=== PATIENT | male | born 1965 | race Caucasian/White ===

== ENCOUNTER 2024-05-18 22:51 | Inpatient (IN) | payer OTHER, SELFPAY ==
[2024-05-18 22:54] VITALS: BMI 27.4
[2024-05-18 23:52] VITALS: BP 124/71; PULSE 86; RESP 16; TEMP 36.4; O2SAT 96
--- NOTE | 2024-05-19 02:24 | PC.ADMIT ---
Patient admitted to M5 at approximately 2230 via stretcher as 12b from [facility] where he presented with persistent upper abdominal pain without nausea/vomiting, increased urinary frequency, reported unprotected sexual activity and passive SI/HI. PMH includes Chronic L shoulder pain, Chronic R hip pain, DVT/PE. Patient has extensive history of ED presentations and inpatient admissions and 25-30 year history of incarceration. Alert and oriented x4. Skin warm, dry and intact. VSS. Appears stated age.Well groomed and in no acute distress. Speech is clear. Denies AH/VH and presents without evidence of delusions. Good eye contact. Ambulates independently. Patient is homeless and states he would like to go back to custodial. Reports that he is hopeless and wishes he was not alive but has no concrete plan. Patient also reports he wants to kill the drug dealers in [place]. When asked if he had a plan he said, I will shoot them all. Piter presented as calm, quiet and cooperative. Tox screen positive for amphetamines, cocaine and cannabis. Patient reports using these substances as well as heroin prior to admission to ED ([facility]) and stated he has not used alcohol for at least 30 days. Does not exhibit any signs of withdrawal. Patient asked TW what the length of stay would be here because I want to get my meds straightened out. 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 Patient was oriented to unit, given snack after which he went to his room. Observed to be sleeping at this time.
[2024-05-19 08:00] VITALS: BP 119/65; PULSE 77; TEMP 36.5; O2SAT 93
[2024-05-19] MEDS: OLANZapine 5 MG TABLET PO (08:53)
[2024-05-19] MEDS: hydrOXYzine HCL 25 MG TABLET PO (08:53)
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
[2024-05-19 11:50] VITALS: BP 119/65
[2024-05-19] MEDS: Baclofen 20 MG TABLET PO ×3 (11:50→20:31)
[2024-05-19] MEDS: Omeprazole 40 MG CAPSULE.DR PO (11:50)
[2024-05-19] MEDS: Folic Acid 1 MG TABLET PO (11:50)
[2024-05-19] MEDS: chlorproMAZINE HCl 25 MG TABLET 50 MG PO ×2 (11:50→20:31)
[2024-05-19] MEDS: cloNIDine HCL 0.2 MG TABLET PO ×2 (11:50→20:31)
[2024-05-19] MEDS: Aspirin 81 MG TAB.CHEW PO ×2 (11:50→20:31)
[2024-05-19] MEDS: valACYclovir HCL 500 MG TABLET PO ×2 (11:51→20:31)
[2024-05-19] MEDS: Tamsulosin HCL 0.4 MG CAPSULE PO (11:51)
[2024-05-19] MEDS: FLUoxetine HCl 20 MG CAPSULE 40 MG PO (11:51)
[2024-05-19] MEDS: Thiamine HCL 100 MG TABLET PO (11:51)
[2024-05-19] MEDS: Sucralfate 1 GM TABLET PO ×2 (11:52→17:38)
[2024-05-19] MEDS: Gabapentin 400 MG CAPSULE 800 MG PO ×3 (12:42→20:31)
--- NOTE | 2024-05-19 17:33 | P.CONHOSP_ITS ---
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 Medical consult for admission H&P. Patient denies any acute medical complaints at this time. Reports previous abdominal pain has resolved with omeprazole. Does note that he has a right upper rear molar that has a lar ge cavity and tooth needs to be removed, however, denies any acute dental pain either at rest or with chewing. No fever, chills. Denies any abscess like lesions in the mouth. No chest pain/pressure, palpitations. Denies shortness or breath or difficulty breathing. Overall patient states he feels ?good?. Review of Systems Review of Systems: Resolution of abd pain Right upper rear molar cavity Denies jaw or tooth pain Patient denies any acute medical concern at this time. [facility] Medical History Antisocial personality disorder Bipolar disorder PTSD (post-traumatic stress disorder) Social History Household Members: Other Housing: Homeless Do you presently have visiting nurse or other home services: No Patient Tobacco Use Status: Former Tobacco user Tobacco use type: Cigarette Smoked in Last 30 Days: Yes e-Cigarette/Vaping Use: Never Used Patient Interested in Nicotine Replacement: Yes Patient Given Instructions on How to Stop Smoking: Yes Date Education Initiated: 05/18/24 Second Hand Smoke Exposure: No Use of substances other than those prescribed or required for medical reasons: Yes Substance Use Type: Crack/Cocaine, Heroin and Marijuana Last Used Substance: Days (ago) Currently Displaying Signs/Symptoms of Drug Intoxication Withdrawal: No Any prior treatment program specific to substance use: Yes Have you been hit, kicked, punched, or otherwise hurt by someone within the past year? If so, by whom?: No Do you feel safe in your current relationship?: No Current Relationship Is there a partner from a previous relationship who is making you feel unsafe now?: No Advance Directives: No Advance Directives Information Provided: No Do you have thoughts of harming others: None Do you have a plan to hurt others: No Plan Recently lost weight without trying: No Eating poorly because of decreased appetite: No Nutrition Risks: No Nutritional Risk Poor oral hygiene: Yes Meds Allergies Allergy/AdvReac Type Severity Reaction Status Date / Time No Known Allergies Allergy Verified 05/18/24 22:54 Active Medications: Current Medications Acetaminophen (Acetaminophen 325 Mg Tablet) 650 mg PO Q6H PRN PRN Reason: Headache/Pain Mild Scale (1-3) Al Hydroxide/Mg Hydroxide (Magnesium Hydrox/Alum Hydrox 30 Ml Oral.Susp) 30 ml PO Q6H PRN PRN Reason: Heartburn/Nausea Aspirin (Aspirin 81 Mg Tab.Chew) 81 mg PO BID [facility] Last Admin: 05/19/24 11:50 Dose: 81 mg Baclofen (Baclofen 20 Mg Tablet) 20 mg PO TID [facility] Last Admin: 05/19/24 11:50 Dose: 20 mg Chlorpromazine HCl (Chlorpromazine Hcl 25 Mg Tablet) 50 mg PO BID [facility] Last Admin: 05/19/24 11:50 Dose: 50 mg Clonidine HCl (Clonidine Hcl 0.2 Mg Tablet) 0.2 mg PO BID [facility]; Protocol Last Admin: 05/19/24 11:50 Dose: 0.2 mg Fluoxetine HCl (Fluoxetine Hcl 20 Mg Capsule) 40 mg PO DAILY [facility] Last Admin: 05/19/24 11:51 Dose: 40 mg Folic Acid (Folic Acid 1 Mg Tablet) 1 mg PO DAILY [facility] Last Admin: 05/19/24 11:50 Dose: 1 mg Gabapentin (Gabapentin 400 Mg Capsule) 800 mg PO TID [facility] Last Admin: 05/19/24 12:42 Dose: 800 mg Hydroxyzine HCl (Hydroxyzine Hcl 50 Mg Tablet) 50 mg PO Q6H PRN PRN Reason: Anxiety Ibuprofen (Ibuprofen 800 Mg Tablet) 800 mg PO Q8H PRN PRN Reason: Pain, Severe (Pain Scale 7-10) Magnesium Hydroxide (Milk Of Magnesia 30 Ml Oral.Susp) 30 ml PO DAILY PRN PRN Reason: Constipation Mirtazapine (Mirtazapine 15 Mg Tablet) 15 mg PO BEDTIME [facility] Nicotine Polacrilex (Nicotine Polacrilex 2 Mg Gum) 2 mg BUCCAL Q2H PRN PRN Reason: Nicotine Cravings Olanzapine (Olanzapine 5 Mg Tablet) 5 mg PO Q4H PRN PRN Reason: agitation Last Admin: 05/19/24 08:53 Dose: 5 mg Omeprazole (Omeprazole 40 Mg Capsule.Dr) 40 mg PO DAILY@0630 [facility] Last Admin: 05/19/24 11:50 Dose: 40 mg Sucralfate (Sucralfate 1 Gm Tablet) 1 gm PO BIDAC [facility] Tamsulosin HCl (Tamsulosin Hcl 0.4 Mg Capsule) 0.4 mg PO DAILY [facility] Last Admin: 05/19/24 11:51 Dose: 0.4 mg Thiamine HCl (Thiamine Hcl 100 Mg Tablet) 100 mg PO DAILY [facility] Last Admin: 05/19/24 11:51 Dose: 100 mg Trazodone HCl (Trazodone Hcl 100 Mg Tablet) 100 mg PO BEDTIME [facility] Valacyclovir HCl (Valacyclovir Hcl 500 Mg Tablet) 500 mg PO BID [facility] Last Admin: 05/19/24 11:51 Dose: 500 mg Home Medications ?Medication ?Instructions ?Recorded ?Confirmed ?Last Taken ?Type aspirin 81 mg tablet 81 mg PO BID 05/19/24 05/19/24 05/18/24 08:30 History baclofen 20 mg tablet 20 mg PO TID 05/19/24 05/19/24 05/18/24 15:00 History chlorpromazine 50 mg tablet 50 mg PO BID 05/19/24 05/19/24 05/18/24 08:33 History clonidine HCl 0.1 mg tablet 0.2 mg PO BID 05/19/24 05/19/24 05/18/24 08:32 History fluoxetine 40 mg capsule 40 mg PO DAILY 05/19/24 05/19/24 05/18/24 08:33 History folic acid 1 mg tablet 1 mg PO DAILY 05/19/24 05/19/24 05/18/24 08:30 History gabapentin 800 mg tablet 800 mg PO TID 05/19/24 05/19/24 05/18/24 15:00 History hydroxyzine pamoate 50 mg capsule 50 mg PO Q6H PRN Anxiety 05/19/24 05/19/24 05/17/24 19:38 History ibuprofen 800 mg tablet 800 mg PO Q8H PRN Pain (Scale 05/19/24 05/19/24 05/16/24 13:00 History Score 7-10) mirtazapine 15 mg tablet 15 mg PO BEDTIME 05/19/24 05/19/24 05/17/24 20:21 History omeprazole 40 mg capsule,delayed 40 mg PO DAILY 05/19/24 05/19/24 05/18/24 06:30 History release sucralfate 1 gram tablet 1 g PO BID 05/19/24 05/19/24 05/18/24 16:30 History tamsulosin 0.4 mg capsule 0.4 mg PO DAILY 05/19/24 05/19/24 05/18/24 08:30 History thiamine HCl (vitamin B1) 100 mg 100 mg PO DAILY 05/19/24 05/19/24 05/18/24 08:30 History tablet trazodone 100 mg tablet 100 mg PO BEDTIME 05/19/24 05/19/24 05/17/24 20:20 History valacyclovir 500 mg tablet 500 mg PO BID 05/19/24 05/19/24 05/18/24 08:30 History Physical Exam Vital Signs and Narrative: Vital Signs: Last Vital Signs Temp 97.7 F 05/19/24 08:00 Pulse 77 05/19/24 08:00 Resp 16 05/18/24 23:52 BP 119/65 05/19/24 11:50 Pulse Ox 93 05/19/24 08:00 O2 Del Method Room Air 05/19/24 08:00 BMI result Body Mass Index 27.4 General: AOx3, no acute distress HEENT: Blind in left eye Resp: CTA bilaterally CVS: S1, S2, RRR GI: +BS, NT, no distention Skin: Warm, dry Neuro: Cranial nerves II-XII grossly intact bilaterally. 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 Medical consult for admission H&P. Patient denies any acute medical complaints at this time. Mood disorder Plan as per psychiatry Polysubstance use disorder Plan as per psychiatry Pt otherwise denies any significant chronic medical conditions or acute medical complaints at this time. Will sign off. Thank you for allowing us to participate in the care of this patient. Please re-consult if any acute issue need arises.
[2024-05-19 20:00] VITALS: BP 121/73; PULSE 85; TEMP 36.5; O2SAT 96
[2024-05-19] MEDS: Mirtazapine 15 MG TABLET PO (20:31)
[2024-05-19] MEDS: traZODone HCL 100 MG TABLET PO (20:31)
[2024-05-20] MEDS: Omeprazole 40 MG CAPSULE.DR PO (06:36)
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
[2024-05-20 08:12] VITALS: BP 130/78; PULSE 75; RESP 18; TEMP 36.6; O2SAT 93
[2024-05-20] MEDS: Sucralfate 1 GM TABLET PO ×2 (08:31→16:23)
[2024-05-20] MEDS: Baclofen 20 MG TABLET PO ×3 (08:51→20:40)
[2024-05-20] MEDS: Tamsulosin HCL 0.4 MG CAPSULE PO (08:52)
[2024-05-20] MEDS: Thiamine HCL 100 MG TABLET PO (08:52)
[2024-05-20] MEDS: FLUoxetine HCl 20 MG CAPSULE 40 MG PO (08:52)
[2024-05-20] MEDS: Folic Acid 1 MG TABLET PO (08:52)
[2024-05-20] MEDS: cloNIDine HCL 0.2 MG TABLET PO ×2 (08:52→20:39)
[2024-05-20] MEDS: valACYclovir HCL 500 MG TABLET PO ×2 (08:52→20:40)
[2024-05-20] MEDS: Gabapentin 400 MG CAPSULE 800 MG PO ×3 (08:52→20:40)
[2024-05-20] MEDS: chlorproMAZINE HCl 25 MG TABLET 50 MG PO ×3 (08:52→20:40)
[2024-05-20] MEDS: Aspirin 81 MG TAB.CHEW PO ×2 (08:52→20:39)
[2024-05-20] MEDS: OLANZapine 5 MG TABLET PO (11:20)
[2024-05-20] MEDS: hydrOXYzine HCL 50 MG TABLET PO (11:20)
[2024-05-20] MEDS: HaloperidoL 5 MG TABLET PO (15:20)
[2024-05-20 20:00] VITALS: BP 124/64; PULSE 88; TEMP 36.6; O2SAT 94
[2024-05-20 20:39] VITALS: BP 124/64
[2024-05-20] MEDS: Mirtazapine 15 MG TABLET PO (20:39)
[2024-05-20] MEDS: traZODone HCL 100 MG TABLET PO (20:40)
[2024-05-21] MEDS: Omeprazole 40 MG CAPSULE.DR PO (06:30)
[2024-05-21 08:05] VITALS: BP 127/68; PULSE 83; RESP 18; TEMP 36.6; O2SAT 95
--- NOTE | 2024-05-21 08:09 | HO.PSYCHPN ---
Subjective Subjective Date of Service: 05/21/24 Reason For Visit: F60.2, F14.20, F12.9 Medical Problems Affecting Mental Status: No Interim History: Overall reports things are going well with Haldol and Thorazine, which he took yesterday 1 time with good effect. Feeling supported on the unit. Still has suicidal thoughts in the context of homelessness. Isolative. Sleep okay. Appetite good. Medication Compliance: Yes Side effects from medications: No Attending Groups: No Review of Systems Acute medical concerns: No Review of Systems Review of Systems Yes all other systems are reviewed and are negative Mental Status Exam Mental Status Exam Narrative: hospital clothing. In room. Fair self-care. Engaged in interview in treatment room. Pleasant. Reports feeling depressed. Mood is dysthymic. Endorses SI in the context of stressors. No plans. Feeling supported in the hospital. No HI. No hallucinations. Insight and judgment fair Diagnostics Vital Signs (24Hr): Vital Signs - 24 hr 05/20/24 08:12 05/20/24 20:00 05/20/24 20:39 Temperature 98 F 97.9 F Pulse Rate 75 88 Respiratory Rate 18 Blood Pressure 130/78 124/64 124/64 Pulse Oximetry 93 94 Oxygen Delivery Method Room Air Room Air 05/21/24 08:05 Temperature 97.9 F Pulse Rate 83 Respiratory Rate 18 Blood Pressure 127/68 Pulse Oximetry 95 Oxygen Delivery Method Room Air BMI result Body Mass Index 27.4 Medications Medications Current Medications Acetaminophen (Acetaminophen 325 Mg Tablet) 650 mg PO Q6H PRN PRN Reason: Headache/Pain Mild Scale (1-3) Al Hydroxide/Mg Hydroxide (Magnesium Hydrox/Alum Hydrox 30 Ml Oral.Susp) 30 ml PO Q6H PRN PRN Reason: Heartburn/Nausea Aspirin (Aspirin 81 Mg Tab.Chew) 81 mg PO BID [facility] Last Admin: 05/20/24 20:39 Dose: 81 mg Baclofen (Baclofen 20 Mg Tablet) 20 mg PO TID [facility] Last Admin: 05/20/24 20:40 Dose: 20 mg Chlorpromazine HCl (Chlorpromazine Hcl 25 Mg Tablet) 50 mg PO BID [facility] Last Admin: 05/20/24 20:40 Dose: 50 mg Chlorpromazine HCl (Chlorpromazine Hcl 25 Mg Tablet) 50 mg PO TID PRN PRN Reason: agitation Last Admin: 05/20/24 15:21 Dose: 50 mg Clonidine HCl (Clonidine Hcl 0.2 Mg Tablet) 0.2 mg PO BID [facility]; Protocol Last Admin: 05/20/24 20:39 Dose: 0.2 mg Fluoxetine HCl (Fluoxetine Hcl 20 Mg Capsule) 40 mg PO DAILY [facility] Last Admin: 05/20/24 08:52 Dose: 40 mg Folic Acid (Folic Acid 1 Mg Tablet) 1 mg PO DAILY [facility] Last Admin: 05/20/24 08:52 Dose: 1 mg Gabapentin (Gabapentin 400 Mg Capsule) 800 mg PO TID [facility] Last Admin: 05/20/24 20:40 Dose: 800 mg Haloperidol (Haloperidol 5 Mg Tablet) 5 mg PO TID PRN PRN Reason: Anxiety Last Admin: 05/20/24 15:20 Dose: 5 mg Ibuprofen (Ibuprofen 800 Mg Tablet) 800 mg PO Q8H PRN PRN Reason: Pain, Severe (Pain Scale 7-10) Magnesium Hydroxide (Milk Of Magnesia 30 Ml Oral.Susp) 30 ml PO DAILY PRN PRN Reason: Constipation Mirtazapine (Mirtazapine 15 Mg Tablet) 15 mg PO BEDTIME [facility] Last Admin: 05/20/24 20:39 Dose: 15 mg Nicotine Polacrilex (Nicotine Polacrilex 2 Mg Gum) 2 mg BUCCAL Q2H PRN PRN Reason: Nicotine Cravings Omeprazole (Omeprazole 40 Mg Capsule.Dr) 40 mg PO DAILY@0630 [facility] Last Admin: 05/21/24 06:30 Dose: 40 mg Sucralfate (Sucralfate 1 Gm Tablet) 1 gm PO BIDAC [facility] Last Admin: 05/20/24 16:23 Dose: 1 gm Tamsulosin HCl (Tamsulosin Hcl 0.4 Mg Capsule) 0.4 mg PO DAILY [facility] Last Admin: 05/20/24 08:52 Dose: 0.4 mg Thiamine HCl (Thiamine Hcl 100 Mg Tablet) 100 mg PO DAILY [facility] Last Admin: 05/20/24 08:52 Dose: 100 mg Trazodone HCl (Trazodone Hcl 100 Mg Tablet) 100 mg PO BEDTIME [facility] Last Admin: 05/20/24 20:40 Dose: 100 mg Valacyclovir HCl (Valacyclovir Hcl 500 Mg Tablet) 500 mg PO BID [facility] Last Admin: 05/20/24 20:40 Dose: 500 mg Allergies Allergies Allergy/AdvReac Type Severity Reaction Status Date / Time No Known Allergies Allergy Verified 05/18/24 22:54 Assessment & Plan Assessment & Plan (1) Bipolar disorder: Status: Acute Code(s): F31.9 - Bipolar disorder, unspecified (2) PTSD (post-traumatic stress disorder): Status: Acute Code(s): F43.10 - Post-traumatic stress disorder, unspecified (3) Antisocial personality disorder: Status: Acute Code(s): F60.2 - Antisocial personality disorder Plan PTSD, Bipolar Disorder, Antisocial Personality Disorder. Plan: Admit, CV 15 minute checks Continue current regime-Observe for the need to make changes in regime Collateral contacts Diagnostics as needed Encourage full milieu Discharge planning. 05/20: change prns to haldol and thorazine as per patient request 05/21/2024: No changes Reason for continued inpatient stay Substantial Risk for: harm to self and harm to others Time Spent With Patient Time: Total time managing care of this patient today ____ minutes.
[2024-05-21] MEDS: Sucralfate 1 GM TABLET PO ×2 (08:21→16:39)
[2024-05-21 08:58] VITALS: BP 127/68
[2024-05-21] MEDS: cloNIDine HCL 0.2 MG TABLET PO ×2 (08:58→20:05)
[2024-05-21] MEDS: Aspirin 81 MG TAB.CHEW PO ×2 (09:04→20:04)
[2024-05-21] MEDS: Baclofen 20 MG TABLET PO ×3 (09:04→20:05)
[2024-05-21] MEDS: FLUoxetine HCl 20 MG CAPSULE 40 MG PO (09:04)
[2024-05-21] MEDS: chlorproMAZINE HCl 25 MG TABLET 50 MG PO ×3 (09:04→20:04)
[2024-05-21] MEDS: Thiamine HCL 100 MG TABLET PO (09:04)
[2024-05-21] MEDS: valACYclovir HCL 500 MG TABLET PO ×2 (09:05→20:05)
[2024-05-21] MEDS: Gabapentin 400 MG CAPSULE 800 MG PO ×3 (09:06→20:04)
[2024-05-21] MEDS: Folic Acid 1 MG TABLET PO (09:06)
[2024-05-21] MEDS: Tamsulosin HCL 0.4 MG CAPSULE PO (09:06)
[2024-05-21] MEDS: HaloperidoL 5 MG TABLET PO (09:52)
[2024-05-21 20:00] VITALS: BP 125/62; PULSE 85; RESP 15; TEMP 36.5; O2SAT 85
[2024-05-21] MEDS: Mirtazapine 15 MG TABLET PO (20:04)
[2024-05-21] MEDS: traZODone HCL 100 MG TABLET PO (20:04)
[2024-05-22] MEDS: Omeprazole 40 MG CAPSULE.DR PO (06:58)
[2024-05-22 08:00] VITALS: BP 116/76; TEMP 36.6; O2SAT 97
[2024-05-22] MEDS: Aspirin 81 MG TAB.CHEW PO ×2 (08:52→20:19)
[2024-05-22] MEDS: Baclofen 20 MG TABLET PO ×3 (08:52→20:19)
[2024-05-22] MEDS: valACYclovir HCL 500 MG TABLET PO ×2 (08:52→20:18)
[2024-05-22] MEDS: chlorproMAZINE HCl 25 MG TABLET 50 MG PO ×2 (08:52→20:18)
[2024-05-22] MEDS: FLUoxetine HCl 20 MG CAPSULE 40 MG PO (08:52)
[2024-05-22] MEDS: Gabapentin 400 MG CAPSULE 800 MG PO ×3 (08:52→20:18)
[2024-05-22] MEDS: Thiamine HCL 100 MG TABLET PO (08:53)
[2024-05-22] MEDS: HaloperidoL 5 MG TABLET PO ×2 (08:53→13:12)
[2024-05-22] MEDS: Sucralfate 1 GM TABLET PO ×2 (08:53→16:59)
[2024-05-22] MEDS: Folic Acid 1 MG TABLET PO (08:53)
[2024-05-22] MEDS: cloNIDine HCL 0.2 MG TABLET PO ×2 (10:34→20:19)
--- NOTE | 2024-05-22 17:32 | P.PNPSI_ITS ---
Subjective Subjective Date of Service: 05/22/24 Reason For Visit: F60.2, F14.20, F12.9 Subjective Notes: Section 12B Healthcare Proxy: No Guardianship: No Medical Problems Affecting Mental Status: No Interim History: Team report a reasonable weekend with one conflict with a peer over the television. Pt reports he would like to be considered for a residential program. Reports regime to be tolerated and helpful. Declines changes. Asking for an extended length of stay in hospital today. Medication Compliance: Yes Side effects from medications: No Attending Groups: Intermittent Review of Systems Acute medical concerns: No Medical Review of Systems: unchanged Review of Systems Review of Systems Yes all other systems are reviewed and are negative Mental Status Exam Mental Status Exam Patient Appearance: Appropriate Patient Orientation: Person, Place, Time and Situation Level of Consciousness: Alert Patient Behavior: Talkative, Cooperative and Good Eye Contact Mood Description: Depressed Affect Description: Flat Patient Cognition Impaired: No Ability to Follow Directions: Good Speech Pattern: Spontaneous Speech Memory Description: Intact Hallucinations: None Delusions: Not Present Perceptual Disturbances: Depersonalization and Derealization Thought Process: Goal Oriented Thought Content: positive for Goal Oriented Depressive Symptoms: Thoughts of /Suicide Judgement: Fair Diagnostics Vital Signs (24Hr): Vital Signs - 24 hr 05/21/24 20:00 05/22/24 08:00 Temperature 97.7 F 97.8 F Pulse Rate 85 Respiratory Rate 15 Blood Pressure 125/62 116/76 Pulse Oximetry 85 L 97 Oxygen Delivery Method Room Air BMI result Body Mass Index 27.4 Medications Medications Current Medications Acetaminophen (Acetaminophen 325 Mg Tablet) 650 mg PO Q6H PRN PRN Reason: Headache/Pain Mild Scale (1-3) Al Hydroxide/Mg Hydroxide (Magnesium Hydrox/Alum Hydrox 30 Ml Oral.Susp) 30 ml PO Q6H PRN PRN Reason: Heartburn/Nausea Aspirin (Aspirin 81 Mg Tab.Chew) 81 mg PO BID [facility] Last Admin: 05/22/24 08:52 Dose: 81 mg Baclofen (Baclofen 20 Mg Tablet) 20 mg PO TID [facility] Last Admin: 05/22/24 16:59 Dose: 20 mg Chlorpromazine HCl (Chlorpromazine Hcl 25 Mg Tablet) 50 mg PO BID [facility] Last Admin: 05/22/24 08:52 Dose: 50 mg Chlorpromazine HCl (Chlorpromazine Hcl 25 Mg Tablet) 50 mg PO TID PRN PRN Reason: agitation Last Admin: 05/21/24 10:53 Dose: 50 mg Clonidine HCl (Clonidine Hcl 0.2 Mg Tablet) 0.2 mg PO BID [facility]; Protocol Last Admin: 05/22/24 10:34 Dose: 0.2 mg Fluoxetine HCl (Fluoxetine Hcl 20 Mg Capsule) 40 mg PO DAILY [facility] Last Admin: 05/22/24 08:52 Dose: 40 mg Folic Acid (Folic Acid 1 Mg Tablet) 1 mg PO DAILY [facility] Last Admin: 05/22/24 08:53 Dose: 1 mg Gabapentin (Gabapentin 400 Mg Capsule) 800 mg PO TID [facility] Last Admin: 05/22/24 16:59 Dose: 800 mg Haloperidol (Haloperidol 5 Mg Tablet) 5 mg PO TID PRN PRN Reason: Anxiety Last Admin: 05/22/24 13:12 Dose: 5 mg Ibuprofen (Ibuprofen 800 Mg Tablet) 800 mg PO Q8H PRN PRN Reason: Pain, Severe (Pain Scale 7-10) Magnesium Hydroxide (Milk Of Magnesia 30 Ml Oral.Susp) 30 ml PO DAILY PRN PRN Reason: Constipation Mirtazapine (Mirtazapine 15 Mg Tablet) 15 mg PO BEDTIME [facility] Last Admin: 05/21/24 20:04 Dose: 15 mg Nicotine Polacrilex (Nicotine Polacrilex 2 Mg Gum) 2 mg BUCCAL Q2H PRN PRN Reason: Nicotine Cravings Omeprazole (Omeprazole 40 Mg Capsule.Dr) 40 mg PO DAILY@0630 [facility] Last Admin: 05/22/24 06:58 Dose: 40 mg Sucralfate (Sucralfate 1 Gm Tablet) 1 gm PO BIDAC [facility] Last Admin: 05/22/24 16:59 Dose: 1 gm Tamsulosin HCl (Tamsulosin Hcl 0.4 Mg Capsule) 0.8 mg PO BEDTIME [facility] Thiamine HCl (Thiamine Hcl 100 Mg Tablet) 100 mg PO DAILY [facility] Last Admin: 05/22/24 08:53 Dose: 100 mg Trazodone HCl (Trazodone Hcl 100 Mg Tablet) 100 mg PO BEDTIME [facility] Last Admin: 05/21/24 20:04 Dose: 100 mg Valacyclovir HCl (Valacyclovir Hcl 500 Mg Tablet) 500 mg PO BID [facility] Last Admin: 05/22/24 08:52 Dose: 500 mg Allergies Allergies Allergy/AdvReac Type Severity Reaction Status Date / Time No Known Allergies Allergy Verified 05/18/24 22:54 Assessment & Plan Assessment & Plan (1) Bipolar disorder: Status: Acute Code(s): F31.9 - Bipolar disorder, unspecified (2) PTSD (post-traumatic stress disorder): Status: Acute Code(s): F43.10 - Post-traumatic stress disorder, unspecified (3) Antisocial personality disorder: Status: Acute Code(s): F60.2 - Antisocial personality disorder Plan PTSD, Bipolar Disorder, Antisocial Personality Disorder. Plan: Admit, CV 15 minute checks Continue current regime-Observe for the need to make changes in regime Collateral contacts Diagnostics as needed Encourage full milieu Discharge planning. 05/20: change prns to haldol and thorazine as per patient request 05/21/2024: No changes 05/22: team is assessing residential options for pt in discharge planning continue current regime. Pt reporting no current adverse effects. Reason for continued inpatient stay Substantial Risk for: rapid decompensation Time Spent With Patient Time: Total time managing care of this patient today ____ minutes.
[2024-05-22 20:00] VITALS: BP 124/65; PULSE 96; TEMP 36.7; O2SAT 98
[2024-05-22 20:19] VITALS: BP 124/65
[2024-05-22] MEDS: Tamsulosin HCL 0.4 MG CAPSULE 0.8 MG PO (20:19)
[2024-05-22] MEDS: Mirtazapine 15 MG TABLET PO (20:19)
[2024-05-22] MEDS: traZODone HCL 100 MG TABLET PO (20:19)
[2024-05-23] MEDS: Omeprazole 40 MG CAPSULE.DR PO (06:43)
[2024-05-23 08:00] VITALS: BP 110/71; PULSE 94; TEMP 36.6; O2SAT 95
[2024-05-23] MEDS: Aspirin 81 MG TAB.CHEW PO ×2 (08:46→20:21)
[2024-05-23] MEDS: Baclofen 20 MG TABLET PO ×3 (08:46→20:21)
[2024-05-23] MEDS: Gabapentin 400 MG CAPSULE 800 MG PO ×3 (08:46→20:21)
[2024-05-23 08:47] VITALS: BP 110/71
[2024-05-23] MEDS: FLUoxetine HCl 20 MG CAPSULE 40 MG PO (08:47)
[2024-05-23] MEDS: Folic Acid 1 MG TABLET PO (08:47)
[2024-05-23] MEDS: cloNIDine HCL 0.2 MG TABLET PO ×2 (08:47→20:21)
[2024-05-23] MEDS: valACYclovir HCL 500 MG TABLET PO ×2 (08:47→20:21)
[2024-05-23] MEDS: chlorproMAZINE HCl 25 MG TABLET 50 MG PO ×2 (08:47→20:21)
[2024-05-23] MEDS: Sucralfate 1 GM TABLET PO ×2 (08:48→17:58)
[2024-05-23] MEDS: Thiamine HCL 100 MG TABLET PO (08:48)
--- NOTE | 2024-05-23 17:45 | HO.PSYCHPN ---
Subjective Subjective Date of Service: 05/23/24 Reason For Visit: F60.2, F14.20, F12.9 Subjective Notes: Conditional Voluntary Healthcare Proxy: No Guardianship: No Medical Problems Affecting Mental Status: No Interim History: Section 12 B . Pt signed a conditional voluntary this a.m. Reports regime is tolerated and without SE. Reports efficacy. Team looking at respite bed options in [facility] with pt for discharge planning. Medication Compliance: Yes Side effects from medications: No Attending Groups: Intermittent Review of Systems Acute medical concerns: No Medical Review of Systems: unchanged Review of Systems Review of Systems Yes all other systems are reviewed and are negative Mental Status Exam Mental Status Exam Patient Appearance: Appropriate Patient Orientation: Person, Place, Time and Situation Level of Consciousness: Alert Patient Behavior: Talkative, Cooperative and Good Eye Contact Mood Description: Depressed Affect Description: Flat Patient Cognition Impaired: No Ability to Follow Directions: Good Speech Pattern: Spontaneous Speech Memory Description: Intact Hallucinations: None Delusions: Not Present Perceptual Disturbances: Depersonalization and Derealization Thought Process: Goal Oriented Thought Content: positive for Goal Oriented Depressive Symptoms: Thoughts of /Suicide Judgement: Fair Diagnostics Vital Signs (24Hr): Vital Signs - 24 hr 05/22/24 20:00 05/22/24 20:19 05/23/24 08:00 Temperature 98.0 F 97.9 F Pulse Rate 96 94 Blood Pressure 124/65 124/65 110/71 Pulse Oximetry 98 95 Oxygen Delivery Method Room Air Room Air 05/23/24 08:47 Temperature Pulse Rate Blood Pressure 110/71 Pulse Oximetry Oxygen Delivery Method BMI result Body Mass Index 27.4 Medications Medications Current Medications Acetaminophen (Acetaminophen 325 Mg Tablet) 650 mg PO Q6H PRN PRN Reason: Headache/Pain Mild Scale (1-3) Al Hydroxide/Mg Hydroxide (Magnesium Hydrox/Alum Hydrox 30 Ml Oral.Susp) 30 ml PO Q6H PRN PRN Reason: Heartburn/Nausea Aspirin (Aspirin 81 Mg Tab.Chew) 81 mg PO BID [facility] Last Admin: 05/23/24 08:46 Dose: 81 mg Baclofen (Baclofen 20 Mg Tablet) 20 mg PO TID [facility] Last Admin: 05/23/24 14:42 Dose: 20 mg Chlorpromazine HCl (Chlorpromazine Hcl 25 Mg Tablet) 50 mg PO BID [facility] Last Admin: 05/23/24 08:47 Dose: 50 mg Chlorpromazine HCl (Chlorpromazine Hcl 25 Mg Tablet) 50 mg PO TID PRN PRN Reason: agitation Last Admin: 05/21/24 10:53 Dose: 50 mg Clonidine HCl (Clonidine Hcl 0.2 Mg Tablet) 0.2 mg PO BID [facility]; Protocol Last Admin: 05/23/24 08:47 Dose: 0.2 mg Fluoxetine HCl (Fluoxetine Hcl 20 Mg Capsule) 40 mg PO DAILY [facility] Last Admin: 05/23/24 08:47 Dose: 40 mg Folic Acid (Folic Acid 1 Mg Tablet) 1 mg PO DAILY [facility] Last Admin: 05/23/24 08:47 Dose: 1 mg Gabapentin (Gabapentin 400 Mg Capsule) 800 mg PO TID [facility] Last Admin: 05/23/24 14:43 Dose: 800 mg Haloperidol (Haloperidol 5 Mg Tablet) 5 mg PO TID PRN PRN Reason: Anxiety Last Admin: 05/22/24 13:12 Dose: 5 mg Ibuprofen (Ibuprofen 800 Mg Tablet) 800 mg PO Q8H PRN PRN Reason: Pain, Severe (Pain Scale 7-10) Magnesium Hydroxide (Milk Of Magnesia 30 Ml Oral.Susp) 30 ml PO DAILY PRN PRN Reason: Constipation Mirtazapine (Mirtazapine 15 Mg Tablet) 15 mg PO BEDTIME [facility] Last Admin: 05/22/24 20:19 Dose: 15 mg Nicotine Polacrilex (Nicotine Polacrilex 2 Mg Gum) 2 mg BUCCAL Q2H PRN PRN Reason: Nicotine Cravings Omeprazole (Omeprazole 40 Mg Capsule.Dr) 40 mg PO DAILY@0630 [facility] Last Admin: 05/23/24 06:43 Dose: 40 mg Sucralfate (Sucralfate 1 Gm Tablet) 1 gm PO BIDAC [facility] Last Admin: 05/23/24 08:48 Dose: 1 gm Tamsulosin HCl (Tamsulosin Hcl 0.4 Mg Capsule) 0.8 mg PO BEDTIME [facility] Last Admin: 05/22/24 20:19 Dose: 0.8 mg Thiamine HCl (Thiamine Hcl 100 Mg Tablet) 100 mg PO DAILY [facility] Last Admin: 05/23/24 08:48 Dose: 100 mg Trazodone HCl (Trazodone Hcl 100 Mg Tablet) 100 mg PO BEDTIME [facility] Last Admin: 05/22/24 20:19 Dose: 100 mg Valacyclovir HCl (Valacyclovir Hcl 500 Mg Tablet) 500 mg PO BID [facility] Last Admin: 05/23/24 08:47 Dose: 500 mg Allergies Allergies Allergy/AdvReac Type Severity Reaction Status Date / Time No Known Allergies Allergy Verified 05/18/24 22:54 Assessment & Plan Assessment & Plan (1) Bipolar disorder: Status: Acute Code(s): F31.9 - Bipolar disorder, unspecified (2) PTSD (post-traumatic stress disorder): Status: Acute Code(s): F43.10 - Post-traumatic stress disorder, unspecified (3) Antisocial personality disorder: Status: Acute Code(s): F60.2 - Antisocial personality disorder Plan PTSD, Bipolar Disorder, Antisocial Personality Disorder. Plan: Admit, CV 15 minute checks Continue current regime-Observe for the need to make changes in regime Collateral contacts Diagnostics as needed Encourage full milieu Discharge planning. 05/20: change prns to haldol and thorazine as per patient request 05/21/2024: No changes 05/23/24: Continue tx Reason for continued inpatient stay Substantial Risk for: rapid decompensation Time Spent With Patient Time: Total time managing care of this patient today ____ minutes.
[2024-05-23 19:58] VITALS: BP 131/72; PULSE 80; TEMP 36.5; O2SAT 96
[2024-05-23] MEDS: Mirtazapine 15 MG TABLET PO (20:21)
[2024-05-23] MEDS: traZODone HCL 100 MG TABLET PO (20:21)
[2024-05-23] MEDS: Tamsulosin HCL 0.4 MG CAPSULE 0.8 MG PO (20:22)
[2024-05-24] MEDS: Omeprazole 40 MG CAPSULE.DR PO (06:33)
[2024-05-24 08:00] VITALS: BP 119/58; PULSE 80; RESP 18; TEMP 36.4; O2SAT 93
[2024-05-24] MEDS: Gabapentin 400 MG CAPSULE 800 MG PO ×3 (09:13→20:41)
[2024-05-24] MEDS: FLUoxetine HCl 20 MG CAPSULE 40 MG PO (09:14)
[2024-05-24] MEDS: Sucralfate 1 GM TABLET PO ×2 (09:14→17:04)
[2024-05-24] MEDS: Folic Acid 1 MG TABLET PO (09:15)
[2024-05-24] MEDS: chlorproMAZINE HCl 25 MG TABLET 50 MG PO ×2 (09:15→20:41)
[2024-05-24] MEDS: Baclofen 20 MG TABLET PO ×3 (09:16→20:41)
[2024-05-24] MEDS: valACYclovir HCL 500 MG TABLET PO ×2 (09:16→20:42)
[2024-05-24] MEDS: cloNIDine HCL 0.2 MG TABLET PO ×2 (09:17→20:41)
[2024-05-24] MEDS: Aspirin 81 MG TAB.CHEW PO ×2 (09:17→20:40)
[2024-05-24] MEDS: Thiamine HCL 100 MG TABLET PO (09:20)
--- NOTE | 2024-05-24 10:33 | HO.PSYCHPN ---
Subjective Subjective Date of Service: 05/24/24 Reason For Visit: F60.2, F14.20, F12.9 Subjective Notes: Conditional Voluntary Healthcare Proxy: No Guardianship: No Medical Problems Affecting Mental Status: No Interim History: Visable in milieu. Social with select peers. Team report some irritability at times. Team continue to work on respite acceptance. Pt reports regime to be effective and without SE. Will need to continue to monitor irritability. Medication Compliance: Yes Side effects from medications: No Attending Groups: Intermittent Review of Systems Acute medical concerns: No Medical Review of Systems: unchanged Review of Systems Review of Systems Yes all other systems are reviewed and are negative Mental Status Exam Mental Status Exam Patient Appearance: Appropriate Patient Orientation: Person, Place, Time and Situation Level of Consciousness: Alert Patient Behavior: Talkative, Cooperative and Good Eye Contact Mood Description: Depressed Affect Description: Flat Patient Cognition Impaired: No Ability to Follow Directions: Good Speech Pattern: Spontaneous Speech Memory Description: Intact Hallucinations: None Delusions: Not Present Perceptual Disturbances: Depersonalization and Derealization Thought Process: Goal Oriented Thought Content: positive for Goal Oriented Depressive Symptoms: Increased Irritability and Thoughts of /Suicide Judgement: Fair Diagnostics Vital Signs (24Hr): Vital Signs - 24 hr 05/23/24 19:58 05/24/24 08:00 Temperature 97.7 F 97.5 F Pulse Rate 80 80 Respiratory Rate 18 Blood Pressure 131/72 119/58 L Pulse Oximetry 96 93 Oxygen Delivery Method Room Air BMI result Body Mass Index 27.4 Medications Medications Current Medications Acetaminophen (Acetaminophen 325 Mg Tablet) 650 mg PO Q6H PRN PRN Reason: Headache/Pain Mild Scale (1-3) Al Hydroxide/Mg Hydroxide (Magnesium Hydrox/Alum Hydrox 30 Ml Oral.Susp) 30 ml PO Q6H PRN PRN Reason: Heartburn/Nausea Aspirin (Aspirin 81 Mg Tab.Chew) 81 mg PO BID [facility] Last Admin: 05/24/24 09:17 Dose: 81 mg Baclofen (Baclofen 20 Mg Tablet) 20 mg PO TID [facility] Last Admin: 05/24/24 09:16 Dose: 20 mg Chlorpromazine HCl (Chlorpromazine Hcl 25 Mg Tablet) 50 mg PO BID [facility] Last Admin: 05/24/24 09:15 Dose: 50 mg Chlorpromazine HCl (Chlorpromazine Hcl 25 Mg Tablet) 50 mg PO TID PRN PRN Reason: agitation Last Admin: 05/21/24 10:53 Dose: 50 mg Clonidine HCl (Clonidine Hcl 0.2 Mg Tablet) 0.2 mg PO BID [facility]; Protocol Last Admin: 05/24/24 09:17 Dose: 0.2 mg Fluoxetine HCl (Fluoxetine Hcl 20 Mg Capsule) 40 mg PO DAILY [facility] Last Admin: 05/24/24 09:14 Dose: 40 mg Folic Acid (Folic Acid 1 Mg Tablet) 1 mg PO DAILY [facility] Last Admin: 05/24/24 09:15 Dose: 1 mg Gabapentin (Gabapentin 400 Mg Capsule) 800 mg PO TID [facility] Last Admin: 05/24/24 09:13 Dose: 800 mg Haloperidol (Haloperidol 5 Mg Tablet) 5 mg PO TID PRN PRN Reason: Anxiety Last Admin: 05/22/24 13:12 Dose: 5 mg Ibuprofen (Ibuprofen 800 Mg Tablet) 800 mg PO Q8H PRN PRN Reason: Pain, Severe (Pain Scale 7-10) Magnesium Hydroxide (Milk Of Magnesia 30 Ml Oral.Susp) 30 ml PO DAILY PRN PRN Reason: Constipation Mirtazapine (Mirtazapine 15 Mg Tablet) 15 mg PO BEDTIME [facility] Last Admin: 05/23/24 20:21 Dose: 15 mg Nicotine Polacrilex (Nicotine Polacrilex 2 Mg Gum) 2 mg BUCCAL Q2H PRN PRN Reason: Nicotine Cravings Omeprazole (Omeprazole 40 Mg Capsule.Dr) 40 mg PO DAILY@0630 [facility] Last Admin: 05/24/24 06:33 Dose: 40 mg Sucralfate (Sucralfate 1 Gm Tablet) 1 gm PO BIDAC [facility] Last Admin: 05/24/24 09:14 Dose: 1 gm Tamsulosin HCl (Tamsulosin Hcl 0.4 Mg Capsule) 0.8 mg PO BEDTIME [facility] Last Admin: 05/23/24 20:22 Dose: 0.8 mg Thiamine HCl (Thiamine Hcl 100 Mg Tablet) 100 mg PO DAILY [facility] Last Admin: 05/24/24 09:20 Dose: 100 mg Trazodone HCl (Trazodone Hcl 100 Mg Tablet) 100 mg PO BEDTIME [facility] Last Admin: 05/23/24 20:21 Dose: 100 mg Valacyclovir HCl (Valacyclovir Hcl 500 Mg Tablet) 500 mg PO BID [facility] Last Admin: 05/24/24 09:16 Dose: 500 mg Allergies Allergies Allergy/AdvReac Type Severity Reaction Status Date / Time No Known Allergies Allergy Verified 05/18/24 22:54 Assessment & Plan Assessment & Plan (1) Bipolar disorder: Status: Acute Code(s): F31.9 - Bipolar disorder, unspecified (2) PTSD (post-traumatic stress disorder): Status: Acute Code(s): F43.10 - Post-traumatic stress disorder, unspecified (3) Antisocial personality disorder: Status: Acute Code(s): F60.2 - Antisocial personality disorder Plan PTSD, Bipolar Disorder, Antisocial Personality Disorder. Plan: Admit, CV 15 minute checks Continue current regime-Observe for the need to make changes in regime Collateral contacts Diagnostics as needed Encourage full milieu Discharge planning. 05/20: change prns to haldol and thorazine as per patient request 05/21/2024: No changes 05/22: team is assessing residential options for pt in discharge planning continue current regime. Pt reporting no current adverse effects. 05/24: Continue tx Informed Consent: understands Reason for continued inpatient stay Substantial Risk for: rapid decompensation Time Spent With Patient Time: Total time managing care of this patient today ____ minutes.
[2024-05-24 20:00] VITALS: BP 136/77; PULSE 81; RESP 18; TEMP 36.3; O2SAT 97
[2024-05-24] MEDS: Tamsulosin HCL 0.4 MG CAPSULE 0.8 MG PO (20:42)
[2024-05-24] MEDS: traZODone HCL 100 MG TABLET PO (20:42)
[2024-05-24] MEDS: Ibuprofen 800 MG TABLET PO (20:42)
[2024-05-24] MEDS: Mirtazapine 15 MG TABLET PO (20:42)
[2024-05-25] MEDS: Omeprazole 40 MG CAPSULE.DR PO (06:39)
[2024-05-25] MEDS: Sucralfate 1 GM TABLET PO ×2 (06:39→16:40)
[2024-05-25 07:00] VITALS: BMI 28.4
[2024-05-25 08:12] VITALS: BP 114/68; PULSE 69; RESP 16; TEMP 36.4; O2SAT 96
[2024-05-25] MEDS: Aspirin 81 MG TAB.CHEW PO ×2 (08:29→20:04)
[2024-05-25] MEDS: Gabapentin 400 MG CAPSULE 800 MG PO ×3 (08:29→20:05)
[2024-05-25] MEDS: Folic Acid 1 MG TABLET PO (08:29)
[2024-05-25] MEDS: valACYclovir HCL 500 MG TABLET PO ×2 (08:29→20:04)
[2024-05-25] MEDS: cloNIDine HCL 0.2 MG TABLET PO ×2 (08:29→20:04)
[2024-05-25] MEDS: Thiamine HCL 100 MG TABLET PO (08:30)
[2024-05-25] MEDS: chlorproMAZINE HCl 25 MG TABLET 50 MG PO ×2 (08:30→20:04)
[2024-05-25] MEDS: FLUoxetine HCl 20 MG CAPSULE 40 MG PO (08:44)
[2024-05-25] MEDS: Baclofen 20 MG TABLET PO ×3 (08:44→20:04)
[2024-05-25] MEDS: HaloperidoL 5 MG TABLET PO (09:23)
[2024-05-25] MEDS: Ibuprofen 800 MG TABLET PO (09:58)
--- NOTE | 2024-05-25 11:39 | P.PNPSI_ITS ---
Subjective Subjective Date of Service: 05/25/24 Reason For Visit: F60.2, F14.20, F12.9 Interim History: Met with pt and Sharif CHOWDARY. Pt reports noise is a problem-causing him to need to leave programs. Sensory overstimulation tolerance is low, he speculates due to his many years of incarceration. This, along with social anxiety, PTSD sx he believes causes him to fail in residential situation. Describes his time in [place], age [age] and the trauma he has seen and experienced here. Current milieu he reports to be tolerable. Discussed med options to assist with sx. Currently no placement options. Pt will need to return to [facility] if accepted. Several applications are filed. Pt states he will take whatever is offered and make it work Medication Compliance: Yes Side effects from medications: No Attending Groups: Intermittent Review of Systems Acute medical concerns: No Medical Review of Systems: unchanged Review of Systems Review of Systems Yes all other systems are reviewed and are negative Mental Status Exam Mental Status Exam Patient Appearance: Appropriate Patient Orientation: Person, Place, Time and Situation Level of Consciousness: Alert Patient Behavior: Talkative, Cooperative and Good Eye Contact Mood Description: Depressed Affect Description: Flat Patient Cognition Impaired: No Ability to Follow Directions: Good Speech Pattern: Spontaneous Speech Memory Description: Intact Hallucinations: None Delusions: Not Present Perceptual Disturbances: Depersonalization and Derealization Thought Process: Goal Oriented Thought Content: positive for Goal Oriented Depressive Symptoms: Increased Irritability Judgement: Fair Diagnostics Vital Signs (24Hr): Vital Signs - 24 hr 05/24/24 20:00 05/25/24 08:12 Temperature 97.4 F 97.6 F Pulse Rate 81 69 Respiratory Rate 18 16 Blood Pressure 136/77 114/68 Pulse Oximetry 97 96 Oxygen Delivery Method Room Air Room Air BMI result Body Mass Index 28.4 Medications Medications Current Medications Acetaminophen (Acetaminophen 325 Mg Tablet) 650 mg PO Q6H PRN PRN Reason: Headache/Pain Mild Scale (1-3) Al Hydroxide/Mg Hydroxide (Magnesium Hydrox/Alum Hydrox 30 Ml Oral.Susp) 30 ml PO Q6H PRN PRN Reason: Heartburn/Nausea Aspirin (Aspirin 81 Mg Tab.Chew) 81 mg PO BID [facility] Last Admin: 05/25/24 08:29 Dose: 81 mg Baclofen (Baclofen 20 Mg Tablet) 20 mg PO TID [facility] Last Admin: 05/25/24 08:44 Dose: 20 mg Chlorpromazine HCl (Chlorpromazine Hcl 25 Mg Tablet) 50 mg PO BID [facility] Last Admin: 05/25/24 08:30 Dose: 50 mg Chlorpromazine HCl (Chlorpromazine Hcl 25 Mg Tablet) 50 mg PO TID PRN PRN Reason: agitation Last Admin: 05/21/24 10:53 Dose: 50 mg Clonidine HCl (Clonidine Hcl 0.2 Mg Tablet) 0.2 mg PO BID [facility]; Protocol Last Admin: 05/25/24 08:29 Dose: 0.2 mg Fluoxetine HCl (Fluoxetine Hcl 20 Mg Capsule) 40 mg PO DAILY [facility] Last Admin: 05/25/24 08:44 Dose: 40 mg Folic Acid (Folic Acid 1 Mg Tablet) 1 mg PO DAILY [facility] Last Admin: 05/25/24 08:29 Dose: 1 mg Gabapentin (Gabapentin 400 Mg Capsule) 800 mg PO TID [facility] Last Admin: 05/25/24 08:29 Dose: 800 mg Haloperidol (Haloperidol 5 Mg Tablet) 5 mg PO TID PRN PRN Reason: Anxiety Last Admin: 05/25/24 09:23 Dose: 5 mg Ibuprofen (Ibuprofen 800 Mg Tablet) 800 mg PO Q8H PRN PRN Reason: Pain, Severe (Pain Scale 7-10) Last Admin: 05/25/24 09:58 Dose: 800 mg Magnesium Hydroxide (Milk Of Magnesia 30 Ml Oral.Susp) 30 ml PO DAILY PRN PRN Reason: Constipation Mirtazapine (Mirtazapine 15 Mg Tablet) 15 mg PO BEDTIME [facility] Last Admin: 05/24/24 20:42 Dose: 15 mg Nicotine Polacrilex (Nicotine Polacrilex 2 Mg Gum) 2 mg BUCCAL Q2H PRN PRN Reason: Nicotine Cravings Omeprazole (Omeprazole 40 Mg Capsule.Dr) 40 mg PO DAILY@0630 [facility] Last Admin: 05/25/24 06:39 Dose: 40 mg Sucralfate (Sucralfate 1 Gm Tablet) 1 gm PO BIDAC [facility] Last Admin: 05/25/24 06:39 Dose: 1 gm Tamsulosin HCl (Tamsulosin Hcl 0.4 Mg Capsule) 0.8 mg PO BEDTIME [facility] Last Admin: 05/24/24 20:42 Dose: 0.8 mg Thiamine HCl (Thiamine Hcl 100 Mg Tablet) 100 mg PO DAILY [facility] Last Admin: 05/25/24 08:30 Dose: 100 mg Trazodone HCl (Trazodone Hcl 100 Mg Tablet) 100 mg PO BEDTIME [facility] Last Admin: 05/24/24 20:42 Dose: 100 mg Valacyclovir HCl (Valacyclovir Hcl 500 Mg Tablet) 500 mg PO BID [facility] Last Admin: 05/25/24 08:29 Dose: 500 mg Allergies Allergies Allergy/AdvReac Type Severity Reaction Status Date / Time No Known Allergies Allergy Verified 05/18/24 22:54 Assessment & Plan Assessment & Plan (1) Bipolar disorder: Status: Acute Code(s): F31.9 - Bipolar disorder, unspecified (2) PTSD (post-traumatic stress disorder): Status: Acute Code(s): F43.10 - Post-traumatic stress disorder, unspecified (3) Antisocial personality disorder: Status: Acute Code(s): F60.2 - Antisocial personality disorder Plan PTSD, Bipolar Disorder, Antisocial Personality Disorder. Plan: Admit, CV 15 minute checks Continue current regime-Observe for the need to make changes in regime Collateral contacts Diagnostics as needed Encourage full milieu Discharge planning. 05/20: change prns to haldol and thorazine as per patient request 05/21/2024: No changes 05/22: team is assessing residential options for pt in discharge planning continue current regime. Pt reporting no current adverse effects. 05/24: Continue tx 05/25: Continue tx Reason for continued inpatient stay Substantial Risk for: rapid decompensation Time Spent With Patient Time: Total time managing care of this patient today ____ minutes.
[2024-05-25 19:45] VITALS: BP 144/73; PULSE 86; RESP 18; TEMP 36.9; O2SAT 95
[2024-05-25] MEDS: Tamsulosin HCL 0.4 MG CAPSULE 0.8 MG PO (20:03)
[2024-05-25 20:04] VITALS: BP 144/73
[2024-05-25] MEDS: Mirtazapine 15 MG TABLET PO (20:04)
[2024-05-25] MEDS: traZODone HCL 100 MG TABLET PO (20:04)
[2024-05-26] MEDS: Omeprazole 40 MG CAPSULE.DR PO (06:26)
[2024-05-26 08:00] VITALS: BP 116/69; PULSE 88; RESP 18; TEMP 36.6; O2SAT 94
[2024-05-26] MEDS: Sucralfate 1 GM TABLET PO (08:07)
[2024-05-26] MEDS: FLUoxetine HCl 20 MG CAPSULE 40 MG PO (08:26)
[2024-05-26] MEDS: Thiamine HCL 100 MG TABLET PO (08:26)
[2024-05-26] MEDS: chlorproMAZINE HCl 25 MG TABLET 50 MG PO ×2 (08:26→20:17)
[2024-05-26 08:27] VITALS: BP 116/69
[2024-05-26] MEDS: cloNIDine HCL 0.2 MG TABLET PO ×2 (08:27→20:16)
[2024-05-26] MEDS: Baclofen 20 MG TABLET PO ×3 (08:27→20:16)
[2024-05-26] MEDS: Aspirin 81 MG TAB.CHEW PO ×2 (08:27→20:16)
[2024-05-26] MEDS: valACYclovir HCL 500 MG TABLET PO ×2 (08:27→20:16)
[2024-05-26] MEDS: Gabapentin 400 MG CAPSULE 800 MG PO ×3 (08:27→20:17)
[2024-05-26] MEDS: Folic Acid 1 MG TABLET PO (08:27)
--- NOTE | 2024-05-26 09:47 | HO.PSYCHPN ---
Subjective Subjective Date of Service: 05/26/24 Reason For Visit: F60.2, F14.20, F12.9 Subjective Notes: Conditional Voluntary Healthcare Proxy: No Guardianship: No Medical Problems Affecting Mental Status: No Interim History: Pt talks of sx of sensory overload and how disabling they are to him. Team continues to work on CSS options. Pt expressing frustration. I can never get into CSS from the hospital . Medication Compliance: Yes Side effects from medications: No Attending Groups: Yes Review of Systems Acute medical concerns: No Medical Review of Systems: unchanged Review of Systems Review of Systems neuropathic pain, which pt reports is chcf Yes all other systems are reviewed and are negative Mental Status Exam Mental Status Exam Patient Appearance: Appropriate Patient Orientation: Person, Place, Time and Situation Level of Consciousness: Alert Patient Behavior: Talkative, Cooperative and Good Eye Contact Mood Description: Depressed Affect Description: Flat Patient Cognition Impaired: No Ability to Follow Directions: Good Speech Pattern: Spontaneous Speech Memory Description: Intact Hallucinations: None Delusions: Not Present Perceptual Disturbances: Depersonalization and Derealization Thought Process: Goal Oriented Thought Content: positive for Goal Oriented Depressive Symptoms: Increased Irritability Judgement: Fair Diagnostics Vital Signs (24Hr): Vital Signs - 24 hr 05/25/24 19:45 05/25/24 20:04 05/26/24 08:00 Temperature 98.4 F 97.8 F Pulse Rate 86 88 Respiratory Rate 18 18 Blood Pressure 144/73 H 144/73 H 116/69 Pulse Oximetry 95 94 Oxygen Delivery Method Room Air Room Air 05/26/24 08:27 Temperature Pulse Rate Respiratory Rate Blood Pressure 116/69 Pulse Oximetry Oxygen Delivery Method BMI result Body Mass Index 28.4 Medications Medications Current Medications Acetaminophen (Acetaminophen 325 Mg Tablet) 650 mg PO Q6H PRN PRN Reason: Headache/Pain Mild Scale (1-3) Al Hydroxide/Mg Hydroxide (Magnesium Hydrox/Alum Hydrox 30 Ml Oral.Susp) 30 ml PO Q6H PRN PRN Reason: Heartburn/Nausea Aspirin (Aspirin 81 Mg Tab.Chew) 81 mg PO BID [facility] Last Admin: 05/26/24 08:27 Dose: 81 mg Baclofen (Baclofen 20 Mg Tablet) 20 mg PO TID [facility] Last Admin: 05/26/24 08:27 Dose: 20 mg Chlorpromazine HCl (Chlorpromazine Hcl 25 Mg Tablet) 50 mg PO BID [facility] Last Admin: 05/26/24 08:26 Dose: 50 mg Chlorpromazine HCl (Chlorpromazine Hcl 25 Mg Tablet) 50 mg PO TID PRN PRN Reason: agitation Last Admin: 05/21/24 10:53 Dose: 50 mg Clonidine HCl (Clonidine Hcl 0.2 Mg Tablet) 0.2 mg PO BID [facility]; Protocol Last Admin: 05/26/24 08:27 Dose: 0.2 mg Fluoxetine HCl (Fluoxetine Hcl 20 Mg Capsule) 40 mg PO DAILY [facility] Last Admin: 05/26/24 08:26 Dose: 40 mg Folic Acid (Folic Acid 1 Mg Tablet) 1 mg PO DAILY [facility] Last Admin: 05/26/24 08:27 Dose: 1 mg Gabapentin (Gabapentin 400 Mg Capsule) 800 mg PO TID [facility] Last Admin: 05/26/24 08:27 Dose: 800 mg Haloperidol (Haloperidol 5 Mg Tablet) 5 mg PO TID PRN PRN Reason: Anxiety Last Admin: 05/25/24 09:23 Dose: 5 mg Ibuprofen (Ibuprofen 800 Mg Tablet) 800 mg PO Q8H PRN PRN Reason: Pain, Severe (Pain Scale 7-10) Last Admin: 05/25/24 09:58 Dose: 800 mg Magnesium Hydroxide (Milk Of Magnesia 30 Ml Oral.Susp) 30 ml PO DAILY PRN PRN Reason: Constipation Mirtazapine (Mirtazapine 15 Mg Tablet) 15 mg PO BEDTIME [facility] Last Admin: 05/25/24 20:04 Dose: 15 mg Nicotine Polacrilex (Nicotine Polacrilex 2 Mg Gum) 2 mg BUCCAL Q2H PRN PRN Reason: Nicotine Cravings Pat Own Med (Act Dry Mouth Moisturizing Gum 1 Piece Of Gum) 1 piece of gum PO Q2H PRN PRN Reason: Dry Mouth Last Admin: 05/25/24 17:49 Dose: 1 piece of gum Omeprazole (Omeprazole 40 Mg Capsule.Dr) 40 mg PO DAILY@0630 [facility] Last Admin: 05/26/24 06:26 Dose: 40 mg Sucralfate (Sucralfate 1 Gm Tablet) 1 gm PO BIDAC [facility] Last Admin: 05/26/24 08:07 Dose: 1 gm Tamsulosin HCl (Tamsulosin Hcl 0.4 Mg Capsule) 0.8 mg PO BEDTIME [facility] Last Admin: 05/25/24 20:03 Dose: 0.8 mg Thiamine HCl (Thiamine Hcl 100 Mg Tablet) 100 mg PO DAILY [facility] Last Admin: 05/26/24 08:26 Dose: 100 mg Trazodone HCl (Trazodone Hcl 100 Mg Tablet) 100 mg PO BEDTIME [facility] Last Admin: 05/25/24 20:04 Dose: 100 mg Valacyclovir HCl (Valacyclovir Hcl 500 Mg Tablet) 500 mg PO BID [facility] Last Admin: 05/26/24 08:27 Dose: 500 mg Allergies Allergies Allergy/AdvReac Type Severity Reaction Status Date / Time No Known Allergies Allergy Verified 05/18/24 22:54 Assessment & Plan Assessment & Plan (1) Bipolar disorder: Status: Acute Code(s): F31.9 - Bipolar disorder, unspecified (2) PTSD (post-traumatic stress disorder): Status: Acute Code(s): F43.10 - Post-traumatic stress disorder, unspecified (3) Antisocial personality disorder: Status: Acute Code(s): F60.2 - Antisocial personality disorder Plan PTSD, Bipolar Disorder, Antisocial Personality Disorder. Plan: Admit, CV 15 minute checks Continue current regime-Observe for the need to make changes in regime Collateral contacts Diagnostics as needed Encourage full milieu Discharge planning. 05/20: change prns to haldol and thorazine as per patient request 05/21/2024: No changes 05/22: team is assessing residential options for pt in discharge planning continue current regime. Pt reporting no current adverse effects. 05/24: Continue tx 05/26: Abilify 5 mg a.m. (Trial for improved mgt of sensory overload sx). Reason for continued inpatient stay Substantial Risk for: rapid decompensation Time Spent With Patient Time: Total time managing care of this patient today ____ minutes.
[2024-05-26] MEDS: HaloperidoL 5 MG TABLET PO (14:22)
[2024-05-26] MEDS: Ibuprofen 800 MG TABLET PO (14:22)
[2024-05-26 20:00] VITALS: BP 122/67; PULSE 94; RESP 16; TEMP 36.8; O2SAT 97
[2024-05-26] MEDS: traZODone HCL 100 MG TABLET PO (20:16)
[2024-05-26] MEDS: Tamsulosin HCL 0.4 MG CAPSULE 0.8 MG PO (20:16)
[2024-05-26] MEDS: Mirtazapine 15 MG TABLET PO (20:16)
[2024-05-27] MEDS: Omeprazole 40 MG CAPSULE.DR PO (06:50)
[2024-05-27 08:00] VITALS: BP 134/66; PULSE 75; RESP 17; TEMP 36.6; O2SAT 95
[2024-05-27] MEDS: Sucralfate 1 GM TABLET PO (09:11)
[2024-05-27] MEDS: Thiamine HCL 100 MG TABLET PO (09:12)
[2024-05-27] MEDS: chlorproMAZINE HCl 25 MG TABLET 50 MG PO ×2 (09:12→20:13)
[2024-05-27] MEDS: ARIPiprazole 5 MG TABLET PO (09:12)
[2024-05-27] MEDS: valACYclovir HCL 500 MG TABLET PO ×2 (09:12→20:13)
[2024-05-27 09:13] VITALS: BP 129/68
[2024-05-27] MEDS: cloNIDine HCL 0.2 MG TABLET PO ×2 (09:13→20:13)
[2024-05-27] MEDS: Aspirin 81 MG TAB.CHEW PO ×2 (09:13→20:13)
[2024-05-27] MEDS: Baclofen 20 MG TABLET PO ×3 (09:13→20:13)
[2024-05-27] MEDS: FLUoxetine HCl 20 MG CAPSULE 40 MG PO (09:13)
[2024-05-27] MEDS: Folic Acid 1 MG TABLET PO (09:14)
[2024-05-27] MEDS: Gabapentin 400 MG CAPSULE 800 MG PO ×3 (09:14→20:13)
[2024-05-27] MEDS: HaloperidoL 5 MG TABLET PO (09:20)
--- NOTE | 2024-05-27 09:53 | HO.PSYCHPN ---
Subjective Subjective Date of Service: 05/27/24 Reason For Visit: F60.2, F14.20, F12.9 Subjective Notes: Conditional Voluntary Healthcare Proxy: No Guardianship: No Medical Problems Affecting Mental Status: No Interim History: 59 yo AAM reports doing ok - staying in room to decrease sensory overload? Denies si/depression, or s/e of medication- haldol helping hoping to get into CSS from hospital Medication Compliance: Yes Side effects from medications: No Attending Groups: Intermittent Review of Systems Acute medical concerns: No Medical Review of Systems: unchanged Mental Status Exam Mental Status Exam Narrative: lying in bed fully dressed Patient Orientation: Person, Place and Situation Level of Consciousness: Awake and Alert Patient Behavior: Guarded and Isolative Affect Description: Sad and Apprehensive Patient Cognition Impaired: No Ability to Follow Directions: Fair Speech Pattern: Clear Hallucinations: None Delusions: Not Present Thought Process: Intact and Goal Oriented Thought Content: positive for Goal Oriented Depressive Symptoms: Increased Fatigue Judgement: Fair Diagnostics Vital Signs (24Hr): Vital Signs - 24 hr 05/26/24 20:00 05/27/24 08:00 05/27/24 09:13 Temperature 98.3 F 97.8 F Pulse Rate 94 75 Respiratory Rate 16 17 Blood Pressure 122/67 134/66 129/68 Pulse Oximetry 97 95 Oxygen Delivery Method Room Air Room Air BMI result Body Mass Index 28.4 Medications Medications Current Medications Acetaminophen (Acetaminophen 325 Mg Tablet) 650 mg PO Q6H PRN PRN Reason: Headache/Pain Mild Scale (1-3) Al Hydroxide/Mg Hydroxide (Magnesium Hydrox/Alum Hydrox 30 Ml Oral.Susp) 30 ml PO Q6H PRN PRN Reason: Heartburn/Nausea Aripiprazole (Aripiprazole 5 Mg Tablet) 5 mg PO DAILY [facility] Last Admin: 05/27/24 09:12 Dose: 5 mg Aspirin (Aspirin 81 Mg Tab.Chew) 81 mg PO BID [facility] Last Admin: 05/27/24 09:13 Dose: 81 mg Baclofen (Baclofen 20 Mg Tablet) 20 mg PO TID [facility] Last Admin: 05/27/24 09:13 Dose: 20 mg Chlorpromazine HCl (Chlorpromazine Hcl 25 Mg Tablet) 50 mg PO BID [facility] Last Admin: 05/27/24 09:12 Dose: 50 mg Chlorpromazine HCl (Chlorpromazine Hcl 25 Mg Tablet) 50 mg PO TID PRN PRN Reason: agitation Last Admin: 05/21/24 10:53 Dose: 50 mg Clonidine HCl (Clonidine Hcl 0.2 Mg Tablet) 0.2 mg PO BID [facility]; Protocol Last Admin: 05/27/24 09:13 Dose: 0.2 mg Fluoxetine HCl (Fluoxetine Hcl 20 Mg Capsule) 40 mg PO DAILY [facility] Last Admin: 05/27/24 09:13 Dose: 40 mg Folic Acid (Folic Acid 1 Mg Tablet) 1 mg PO DAILY [facility] Last Admin: 05/27/24 09:14 Dose: 1 mg Gabapentin (Gabapentin 400 Mg Capsule) 800 mg PO TID [facility] Last Admin: 05/27/24 09:14 Dose: 800 mg Haloperidol (Haloperidol 5 Mg Tablet) 5 mg PO TID PRN PRN Reason: Anxiety Last Admin: 05/27/24 09:20 Dose: 5 mg Ibuprofen (Ibuprofen 800 Mg Tablet) 800 mg PO Q8H PRN PRN Reason: Pain, Severe (Pain Scale 7-10) Last Admin: 05/26/24 14:22 Dose: 800 mg Magnesium Hydroxide (Milk Of Magnesia 30 Ml Oral.Susp) 30 ml PO DAILY PRN PRN Reason: Constipation Mirtazapine (Mirtazapine 15 Mg Tablet) 15 mg PO BEDTIME [facility] Last Admin: 05/26/24 20:16 Dose: 15 mg Nicotine Polacrilex (Nicotine Polacrilex 2 Mg Gum) 2 mg BUCCAL Q2H PRN PRN Reason: Nicotine Cravings Pat Own Med (Act Dry Mouth Moisturizing Gum 1 Piece Of Gum) 1 piece of gum PO Q2H PRN PRN Reason: Dry Mouth Last Admin: 05/26/24 14:22 Dose: 1 piece of gum Omeprazole (Omeprazole 40 Mg Capsule.Dr) 40 mg PO DAILY@0630 [facility] Last Admin: 05/27/24 06:50 Dose: 40 mg Sucralfate (Sucralfate 1 Gm Tablet) 1 gm PO BIDAC [facility] Last Admin: 05/27/24 09:11 Dose: 1 gm Tamsulosin HCl (Tamsulosin Hcl 0.4 Mg Capsule) 0.8 mg PO BEDTIME [facility] Last Admin: 05/26/24 20:16 Dose: 0.8 mg Thiamine HCl (Thiamine Hcl 100 Mg Tablet) 100 mg PO DAILY [facility] Last Admin: 05/27/24 09:12 Dose: 100 mg Trazodone HCl (Trazodone Hcl 100 Mg Tablet) 100 mg PO BEDTIME [facility] Last Admin: 05/26/24 20:16 Dose: 100 mg Valacyclovir HCl (Valacyclovir Hcl 500 Mg Tablet) 500 mg PO BID [facility] Last Admin: 05/27/24 09:12 Dose: 500 mg Allergies Allergies Allergy/AdvReac Type Severity Reaction Status Date / Time No Known Allergies Allergy Verified 05/18/24 22:54 Assessment & Plan Assessment & Plan (1) Bipolar disorder: Status: Acute Code(s): F31.9 - Bipolar disorder, unspecified (2) PTSD (post-traumatic stress disorder): Status: Acute Code(s): F43.10 - Post-traumatic stress disorder, unspecified (3) Antisocial personality disorder: Status: Acute Code(s): F60.2 - Antisocial personality disorder Plan PTSD, Bipolar Disorder, Antisocial Personality Disorder. Plan: Admit, CV 15 minute checks Continue current regime-Observe for the need to make changes in regime Collateral contacts Diagnostics as needed Encourage full milieu Discharge planning. 05/20: change prns to haldol and thorazine as per patient request 05/21/2024: No changes 05/22: team is assessing residential options for pt in discharge planning continue current regime. Pt reporting no current adverse effects. 05/24: Continue tx 05/26: Abilify 5 mg a.m. (Trial for improved mgt of sensory overload sx). 05/27 CTP Reason for continued inpatient stay Substantial Risk for: rapid decompensation Time Spent With Patient Time: Total time managing care of this patient today ____ minutes.
[2024-05-27] MEDS: Ibuprofen 800 MG TABLET PO (14:36)
[2024-05-27 20:00] VITALS: BP 116/59; PULSE 85; RESP 16; TEMP 36.7; O2SAT 95
[2024-05-27] MEDS: Tamsulosin HCL 0.4 MG CAPSULE 0.8 MG PO (20:13)
[2024-05-27] MEDS: traZODone HCL 100 MG TABLET PO (20:13)
[2024-05-27] MEDS: Mirtazapine 15 MG TABLET PO (20:13)
[2024-05-28] MEDS: Sucralfate 1 GM TABLET PO ×2 (06:50→18:40)
[2024-05-28] MEDS: Omeprazole 40 MG CAPSULE.DR PO (06:50)
[2024-05-28 08:34] VITALS: BP 141/79
[2024-05-28] MEDS: Folic Acid 1 MG TABLET PO (08:34)
[2024-05-28] MEDS: Thiamine HCL 100 MG TABLET PO (08:34)
[2024-05-28] MEDS: Gabapentin 400 MG CAPSULE 800 MG PO ×3 (08:34→20:22)
[2024-05-28] MEDS: valACYclovir HCL 500 MG TABLET PO ×2 (08:34→20:22)
[2024-05-28] MEDS: cloNIDine HCL 0.2 MG TABLET PO ×2 (08:34→20:22)
[2024-05-28] MEDS: Aspirin 81 MG TAB.CHEW PO ×2 (08:34→20:21)
[2024-05-28] MEDS: Baclofen 20 MG TABLET PO ×3 (08:34→20:22)
[2024-05-28] MEDS: ARIPiprazole 5 MG TABLET PO (08:34)
[2024-05-28] MEDS: FLUoxetine HCl 20 MG CAPSULE 40 MG PO (08:35)
[2024-05-28] MEDS: chlorproMAZINE HCl 25 MG TABLET 50 MG PO ×2 (08:35→20:21)
[2024-05-28 10:03] VITALS: BP 141/79; PULSE 70; RESP 16; TEMP 36.4; O2SAT 96
--- NOTE | 2024-05-28 11:09 | P.PNPSI_ITS ---
Subjective Subjective Date of Service: 05/28/24 Reason For Visit: F60.2, F14.20, F12.9 Subjective Notes: Conditional Voluntary Healthcare Proxy: No Guardianship: No Medical Problems Affecting Mental Status: No Interim History: 59 yo AA reports he is doing ok - haldol helps anxiety and he is hoping to go to rehab- denies current si - no s/e of medication and slept ok - Medication Compliance: Yes Side effects from medications: No Attending Groups: Intermittent Review of Systems Acute medical concerns: No Medical Review of Systems: unchanged Mental Status Exam Mental Status Exam Narrative: up eating in Kitchen- Patient Appearance: Well Grooomed and Appropriate Patient Orientation: Person, Place, Time and Situation Level of Consciousness: Awake and Alert Patient Behavior: Appropriate and Cooperative Mood Description: Calm Affect Description: Blunted Patient Cognition Impaired: No Ability to Follow Directions: Good Speech Pattern: Clear Hallucinations: None Thought Process: Intact and Goal Oriented Thought Content: positive for Intact Judgement: Fair Diagnostics Vital Signs (24Hr): Vital Signs - 24 hr 05/27/24 20:00 05/28/24 08:34 05/28/24 10:03 Temperature 98.0 F 97.5 F Pulse Rate 85 70 Respiratory Rate 16 16 Blood Pressure 116/59 L 141/79 H 141/79 H Pulse Oximetry 95 96 Oxygen Delivery Method Room Air Room Air BMI result Body Mass Index 28.4 Medications Medications Current Medications Acetaminophen (Acetaminophen 325 Mg Tablet) 650 mg PO Q6H PRN PRN Reason: Headache/Pain Mild Scale (1-3) Al Hydroxide/Mg Hydroxide (Magnesium Hydrox/Alum Hydrox 30 Ml Oral.Susp) 30 ml PO Q6H PRN PRN Reason: Heartburn/Nausea Aripiprazole (Aripiprazole 5 Mg Tablet) 5 mg PO DAILY [facility] Last Admin: 05/28/24 08:34 Dose: 5 mg Aspirin (Aspirin 81 Mg Tab.Chew) 81 mg PO BID [facility] Last Admin: 05/28/24 08:34 Dose: 81 mg Baclofen (Baclofen 20 Mg Tablet) 20 mg PO TID [facility] Last Admin: 05/28/24 08:34 Dose: 20 mg Chlorpromazine HCl (Chlorpromazine Hcl 25 Mg Tablet) 50 mg PO BID [facility] Last Admin: 05/28/24 08:35 Dose: 50 mg Chlorpromazine HCl (Chlorpromazine Hcl 25 Mg Tablet) 50 mg PO TID PRN PRN Reason: agitation Last Admin: 05/21/24 10:53 Dose: 50 mg Clonidine HCl (Clonidine Hcl 0.2 Mg Tablet) 0.2 mg PO BID [facility]; Protocol Last Admin: 05/28/24 08:34 Dose: 0.2 mg Fluoxetine HCl (Fluoxetine Hcl 20 Mg Capsule) 40 mg PO DAILY [facility] Last Admin: 05/28/24 08:35 Dose: 40 mg Folic Acid (Folic Acid 1 Mg Tablet) 1 mg PO DAILY [facility] Last Admin: 05/28/24 08:34 Dose: 1 mg Gabapentin (Gabapentin 400 Mg Capsule) 800 mg PO TID [facility] Last Admin: 05/28/24 08:34 Dose: 800 mg Haloperidol (Haloperidol 5 Mg Tablet) 5 mg PO TID PRN PRN Reason: Anxiety Last Admin: 05/27/24 09:20 Dose: 5 mg Ibuprofen (Ibuprofen 800 Mg Tablet) 800 mg PO Q8H PRN PRN Reason: Pain, Severe (Pain Scale 7-10) Last Admin: 05/27/24 14:36 Dose: 800 mg Magnesium Hydroxide (Milk Of Magnesia 30 Ml Oral.Susp) 30 ml PO DAILY PRN PRN Reason: Constipation Mirtazapine (Mirtazapine 15 Mg Tablet) 15 mg PO BEDTIME [facility] Last Admin: 05/27/24 20:13 Dose: 15 mg Nicotine Polacrilex (Nicotine Polacrilex 2 Mg Gum) 2 mg BUCCAL Q2H PRN PRN Reason: Nicotine Cravings Pat Own Med (Act Dry Mouth Moisturizing Gum 1 Piece Of Gum) 1 piece of gum PO Q2H PRN PRN Reason: Dry Mouth Last Admin: 05/26/24 14:22 Dose: 1 piece of gum Omeprazole (Omeprazole 40 Mg Capsule.Dr) 40 mg PO DAILY@0630 [facility] Last Admin: 05/28/24 06:50 Dose: 40 mg Sucralfate (Sucralfate 1 Gm Tablet) 1 gm PO BIDAC [facility] Last Admin: 05/28/24 06:50 Dose: 1 gm Tamsulosin HCl (Tamsulosin Hcl 0.4 Mg Capsule) 0.8 mg PO BEDTIME [facility] Last Admin: 05/27/24 20:13 Dose: 0.8 mg Thiamine HCl (Thiamine Hcl 100 Mg Tablet) 100 mg PO DAILY [facility] Last Admin: 05/28/24 08:34 Dose: 100 mg Trazodone HCl (Trazodone Hcl 100 Mg Tablet) 100 mg PO BEDTIME [facility] Last Admin: 05/27/24 20:13 Dose: 100 mg Valacyclovir HCl (Valacyclovir Hcl 500 Mg Tablet) 500 mg PO BID [facility] Last Admin: 05/28/24 08:34 Dose: 500 mg Allergies Allergies Allergy/AdvReac Type Severity Reaction Status Date / Time No Known Allergies Allergy Verified 05/18/24 22:54 Assessment & Plan Assessment & Plan (1) Bipolar disorder: Status: Acute Code(s): F31.9 - Bipolar disorder, unspecified (2) PTSD (post-traumatic stress disorder): Status: Acute Code(s): F43.10 - Post-traumatic stress disorder, unspecified (3) Antisocial personality disorder: Status: Acute Code(s): F60.2 - Antisocial personality disorder Plan PTSD, Bipolar Disorder, Antisocial Personality Disorder. Plan: Admit, CV 15 minute checks Continue current regime-Observe for the need to make changes in regime Collateral contacts Diagnostics as needed Encourage full milieu Discharge planning. 05/20: change prns to haldol and thorazine as per patient request 05/21/2024: No changes 05/22: team is assessing residential options for pt in discharge planning continue current regime. Pt reporting no current adverse effects. 05/24: Continue tx 05/26: Abilify 5 mg a.m. (Trial for improved mgt of sensory overload sx). 05/27 CTP 05/28 CTP seems improved- Reason for continued inpatient stay Substantial Risk for: rapid decompensation Time Spent With Patient Time: Total time managing care of this patient today ____ minutes.
[2024-05-28] MEDS: HaloperidoL 5 MG TABLET PO (12:00)
[2024-05-28] MEDS: Milk of Magnesia 30 ML ORAL.SUSP PO (13:34)
[2024-05-28 20:20] VITALS: BP 109/74; PULSE 92; RESP 16; TEMP 37.2; O2SAT 95
[2024-05-28] MEDS: traZODone HCL 100 MG TABLET PO (20:22)
[2024-05-28] MEDS: Mirtazapine 15 MG TABLET PO (20:22)
[2024-05-28] MEDS: Tamsulosin HCL 0.4 MG CAPSULE 0.8 MG PO (20:22)
[2024-05-29] MEDS: Sucralfate 1 GM TABLET PO ×2 (06:34→15:35)
[2024-05-29] MEDS: Omeprazole 40 MG CAPSULE.DR PO (06:34)
[2024-05-29 09:00] VITALS: BP 128/70; PULSE 79; RESP 18; TEMP 36.9; O2SAT 95
[2024-05-29] MEDS: Folic Acid 1 MG TABLET PO (09:08)
[2024-05-29] MEDS: FLUoxetine HCl 20 MG CAPSULE 40 MG PO (09:08)
[2024-05-29] MEDS: Baclofen 20 MG TABLET PO ×3 (09:08→20:11)
[2024-05-29] MEDS: ARIPiprazole 5 MG TABLET PO (09:08)
[2024-05-29] MEDS: cloNIDine HCL 0.2 MG TABLET PO ×2 (09:08→20:11)
[2024-05-29] MEDS: Gabapentin 400 MG CAPSULE 800 MG PO ×3 (09:08→20:11)
[2024-05-29] MEDS: valACYclovir HCL 500 MG TABLET PO ×2 (09:08→20:11)
[2024-05-29] MEDS: chlorproMAZINE HCl 25 MG TABLET 50 MG PO ×2 (09:08→20:11)
[2024-05-29] MEDS: Thiamine HCL 100 MG TABLET PO (09:08)
[2024-05-29] MEDS: Aspirin 81 MG TAB.CHEW PO ×2 (09:08→20:11)
[2024-05-29] MEDS: Ibuprofen 800 MG TABLET PO (15:13)
--- NOTE | 2024-05-29 15:19 | HO.PSYCHPN ---
Subjective Subjective Date of Service: 05/29/24 Reason For Visit: F60.2, F14.20, F12.9 Subjective Notes: Conditional Voluntary Healthcare Proxy: No Guardianship: No Medical Problems Affecting Mental Status: No Interim History: Between 1980 and 2010 I was locked away. There was no help when I got out, it was a different world. Discussed issues with social anxiety, sensory overload in difficult situations with crowded places and his responses to these situations over the past years. Discussed use of Abilify, Gabapentin to help with sx mgt and psychotherapy. Discussed connecting with [facility] which he reports he has not done in the past but is willing to trial. Medication Compliance: Yes Side effects from medications: No Attending Groups: Intermittent Review of Systems Acute medical concerns: No Medical Review of Systems: unchanged Review of Systems Review of Systems Chronic hip pain Chronic GI pain Mental Status Exam Mental Status Exam Narrative: up eating in Kitchen- Patient Appearance: Well Grooomed and Appropriate Patient Orientation: Person, Place, Time and Situation Level of Consciousness: Awake and Alert Patient Behavior: Appropriate and Cooperative Mood Description: Calm Affect Description: Blunted Patient Cognition Impaired: No Ability to Follow Directions: Good Speech Pattern: Clear Hallucinations: None Thought Process: Intact and Goal Oriented Thought Content: positive for Intact Judgement: Fair Diagnostics Vital Signs (24Hr): Vital Signs - 24 hr 05/28/24 20:20 05/29/24 09:00 Temperature 98.9 F 98.5 F Pulse Rate 92 79 Respiratory Rate 16 18 Blood Pressure 109/74 128/70 Pulse Oximetry 95 95 Oxygen Delivery Method Room Air Room Air BMI result Body Mass Index 28.4 Labs 05/30/24 10:18 05/30/24 10:18 Medications Medications Current Medications Acetaminophen (Acetaminophen 325 Mg Tablet) 650 mg PO Q6H PRN PRN Reason: Headache/Pain Mild Scale (1-3) Al Hydroxide/Mg Hydroxide (Magnesium Hydrox/Alum Hydrox 30 Ml Oral.Susp) 30 ml PO Q6H PRN PRN Reason: Heartburn/Nausea Aripiprazole (Aripiprazole 5 Mg Tablet) 5 mg PO DAILY [facility] Last Admin: 05/29/24 09:08 Dose: 5 mg Aspirin (Aspirin 81 Mg Tab.Chew) 81 mg PO BID [facility] Last Admin: 05/29/24 09:08 Dose: 81 mg Baclofen (Baclofen 20 Mg Tablet) 20 mg PO TID [facility] Last Admin: 05/29/24 14:19 Dose: 20 mg Chlorpromazine HCl (Chlorpromazine Hcl 25 Mg Tablet) 50 mg PO BID [facility] Last Admin: 05/29/24 09:08 Dose: 50 mg Chlorpromazine HCl (Chlorpromazine Hcl 25 Mg Tablet) 50 mg PO TID PRN PRN Reason: agitation Last Admin: 05/21/24 10:53 Dose: 50 mg Clonidine HCl (Clonidine Hcl 0.2 Mg Tablet) 0.2 mg PO BID [facility]; Protocol Last Admin: 05/29/24 09:08 Dose: 0.2 mg Fluoxetine HCl (Fluoxetine Hcl 20 Mg Capsule) 40 mg PO DAILY [facility] Last Admin: 05/29/24 09:08 Dose: 40 mg Folic Acid (Folic Acid 1 Mg Tablet) 1 mg PO DAILY [facility] Last Admin: 05/29/24 09:08 Dose: 1 mg Gabapentin (Gabapentin 400 Mg Capsule) 800 mg PO TID [facility] Last Admin: 05/29/24 14:19 Dose: 800 mg Haloperidol (Haloperidol 5 Mg Tablet) 5 mg PO TID PRN PRN Reason: Anxiety Last Admin: 05/28/24 12:00 Dose: 5 mg Ibuprofen (Ibuprofen 800 Mg Tablet) 800 mg PO Q8H PRN PRN Reason: Pain, Severe (Pain Scale 7-10) Last Admin: 05/29/24 15:13 Dose: 800 mg Magnesium Hydroxide (Milk Of Magnesia 30 Ml Oral.Susp) 30 ml PO DAILY PRN PRN Reason: Constipation Last Admin: 05/28/24 13:34 Dose: 30 ml Mirtazapine (Mirtazapine 15 Mg Tablet) 15 mg PO BEDTIME [facility] Last Admin: 05/28/24 20:22 Dose: 15 mg Nicotine Polacrilex (Nicotine Polacrilex 2 Mg Gum) 2 mg BUCCAL Q2H PRN PRN Reason: Nicotine Cravings Pat Own Med (Act Dry Mouth Moisturizing Gum 1 Piece Of Gum) 1 piece of gum PO Q2H PRN PRN Reason: Dry Mouth Last Admin: 05/28/24 14:46 Dose: 1 piece of gum Omeprazole (Omeprazole 40 Mg Capsule.) 40 mg PO DAILY@0630 [facility] Last Admin: 05/29/24 06:34 Dose: 40 mg Sucralfate (Sucralfate 1 Gm Tablet) 1 gm PO BIDAC [facility] Last Admin: 05/29/24 06:34 Dose: 1 gm Tamsulosin HCl (Tamsulosin Hcl 0.4 Mg Capsule) 0.8 mg PO BEDTIME [facility] Last Admin: 05/28/24 20:22 Dose: 0.8 mg Thiamine HCl (Thiamine Hcl 100 Mg Tablet) 100 mg PO DAILY [facility] Last Admin: 05/29/24 09:08 Dose: 100 mg Trazodone HCl (Trazodone Hcl 100 Mg Tablet) 100 mg PO BEDTIME [facility] Last Admin: 05/28/24 20:22 Dose: 100 mg Valacyclovir HCl (Valacyclovir Hcl 500 Mg Tablet) 500 mg PO BID [facility] Last Admin: 05/29/24 09:08 Dose: 500 mg Allergies Allergies Allergy/AdvReac Type Severity Reaction Status Date / Time No Known Allergies Allergy Verified 05/18/24 22:54 Assessment & Plan Assessment & Plan (1) Bipolar disorder: Status: Acute Code(s): F31.9 - Bipolar disorder, unspecified (2) PTSD (post-traumatic stress disorder): Status: Acute Code(s): F43.10 - Post-traumatic stress disorder, unspecified (3) Antisocial personality disorder: Status: Acute Code(s): F60.2 - Antisocial personality disorder Plan PTSD, Bipolar Disorder, Antisocial Personality Disorder. Plan: Admit, CV 15 minute checks Continue current regime-Observe for the need to make changes in regime Collateral contacts Diagnostics as needed Encourage full milieu Discharge planning. 05/20: change prns to haldol and thorazine as per patient request 05/21/2024: No changes 05/22: team is assessing residential options for pt in discharge planning continue current regime. Pt reporting no current adverse effects. 05/24: Continue tx 05/26: Abilify 5 mg a.m. (Trial for improved mgt of sensory overload sx). 05/27 CTP 05/28 CTP seems improved- 05/29 Continue plan of care. Reason for continued inpatient stay Substantial Risk for: rapid decompensation Time Spent With Patient Time: Total time managing care of this patient today ____ minutes.
[2024-05-29 20:00] VITALS: BP 121/76; PULSE 88; RESP 16; TEMP 36.6; O2SAT 95
[2024-05-29] MEDS: Tamsulosin HCL 0.4 MG CAPSULE 0.8 MG PO (20:11)
[2024-05-29] MEDS: traZODone HCL 100 MG TABLET PO (20:11)
[2024-05-29] MEDS: Mirtazapine 15 MG TABLET PO (20:11)
[2024-05-30] MEDS: Sucralfate 1 GM TABLET PO ×2 (07:15→16:24)
[2024-05-30] MEDS: Omeprazole 40 MG CAPSULE.DR PO (07:15)
[2024-05-30 08:00] VITALS: BP 126/62; PULSE 75; RESP 18; TEMP 36.4; O2SAT 93
--- NOTE | 2024-05-30 08:43 | P.PNPSI_ITS ---
Subjective Subjective Date of Service: 05/30/24 Reason For Visit: F60.2, F14.20, F12.9 Subjective Notes: Conditional Voluntary Healthcare Proxy: No Guardianship: No Medical Problems Affecting Mental Status: No Interim History: Pt denied by [facility]. [facility] had made a clinical acceptance and will call for medical data. [facility] will ask for an update at the end of the week. Pt did connect with [facility]. Discussed needing to reconnect with [facility] ortho as his right hip is often infected post surgery. Will get repeat labs to make a general assessment. Talked of interventions for social anxiety, believes [facility] will be able to be of great assistance upon discharge. Medication Compliance: Yes Side effects from medications: No Attending Groups: Intermittent Review of Systems hip-chronic issues reported GI-chronic issues reported Medical Review of Systems: unchanged Review of Systems Review of Systems chronic hip pain Mental Status Exam Mental Status Exam Patient Appearance: Well Grooomed and Appropriate Patient Orientation: Person, Place, Time and Situation Level of Consciousness: Awake and Alert Patient Behavior: Appropriate and Cooperative Mood Description: Calm Affect Description: Blunted Patient Cognition Impaired: No Ability to Follow Directions: Good Speech Pattern: Clear Hallucinations: None Thought Process: Intact and Goal Oriented Thought Content: positive for Intact Judgement: Good Diagnostics Vital Signs (24Hr): Vital Signs - 24 hr 05/29/24 09:00 05/29/24 20:00 Temperature 98.5 F 97.8 F Pulse Rate 79 88 Respiratory Rate 18 16 Blood Pressure 128/70 121/76 Pulse Oximetry 95 95 Oxygen Delivery Method Room Air Room Air BMI result Body Mass Index 28.4 Labs 05/30/24 10:18 05/30/24 10:18 Medications Medications Current Medications Acetaminophen (Acetaminophen 325 Mg Tablet) 650 mg PO Q6H PRN PRN Reason: Headache/Pain Mild Scale (1-3) Al Hydroxide/Mg Hydroxide (Magnesium Hydrox/Alum Hydrox 30 Ml Oral.Susp) 30 ml PO Q6H PRN PRN Reason: Heartburn/Nausea Aripiprazole (Aripiprazole 5 Mg Tablet) 5 mg PO DAILY [facility] Last Admin: 05/29/24 09:08 Dose: 5 mg Aspirin (Aspirin 81 Mg Tab.Chew) 81 mg PO BID [facility] Last Admin: 05/29/24 20:11 Dose: 81 mg Baclofen (Baclofen 20 Mg Tablet) 20 mg PO TID [facility] Last Admin: 05/29/24 20:11 Dose: 20 mg Chlorpromazine HCl (Chlorpromazine Hcl 25 Mg Tablet) 50 mg PO BID [facility] Last Admin: 05/29/24 20:11 Dose: 50 mg Chlorpromazine HCl (Chlorpromazine Hcl 25 Mg Tablet) 50 mg PO TID PRN PRN Reason: agitation Last Admin: 05/21/24 10:53 Dose: 50 mg Clonidine HCl (Clonidine Hcl 0.2 Mg Tablet) 0.2 mg PO BID [facility]; Protocol Last Admin: 05/29/24 20:11 Dose: 0.2 mg Fluoxetine HCl (Fluoxetine Hcl 20 Mg Capsule) 40 mg PO DAILY [facility] Last Admin: 05/29/24 09:08 Dose: 40 mg Folic Acid (Folic Acid 1 Mg Tablet) 1 mg PO DAILY [facility] Last Admin: 05/29/24 09:08 Dose: 1 mg Gabapentin (Gabapentin 400 Mg Capsule) 800 mg PO TID [facility] Last Admin: 05/29/24 20:11 Dose: 800 mg Haloperidol (Haloperidol 5 Mg Tablet) 5 mg PO TID PRN PRN Reason: Anxiety Last Admin: 05/28/24 12:00 Dose: 5 mg Ibuprofen (Ibuprofen 800 Mg Tablet) 800 mg PO Q8H PRN PRN Reason: Pain, Severe (Pain Scale 7-10) Last Admin: 05/29/24 15:13 Dose: 800 mg Magnesium Hydroxide (Milk Of Magnesia 30 Ml Oral.Susp) 30 ml PO DAILY PRN PRN Reason: Constipation Last Admin: 05/28/24 13:34 Dose: 30 ml Mirtazapine (Mirtazapine 15 Mg Tablet) 15 mg PO BEDTIME [facility] Last Admin: 05/29/24 20:11 Dose: 15 mg Nicotine Polacrilex (Nicotine Polacrilex 2 Mg Gum) 2 mg BUCCAL Q2H PRN PRN Reason: Nicotine Cravings Pat Own Med (Act Dry Mouth Moisturizing Gum 1 Piece Of Gum) 1 piece of gum PO Q2H PRN PRN Reason: Dry Mouth Last Admin: 05/28/24 14:46 Dose: 1 piece of gum Omeprazole (Omeprazole 40 Mg Capsule.Dr) 40 mg PO DAILY@0630 [facility] Last Admin: 05/30/24 07:15 Dose: 40 mg Sucralfate (Sucralfate 1 Gm Tablet) 1 gm PO BIDAC [facility] Last Admin: 05/30/24 07:15 Dose: 1 gm Tamsulosin HCl (Tamsulosin Hcl 0.4 Mg Capsule) 0.8 mg PO BEDTIME [facility] Last Admin: 05/29/24 20:11 Dose: 0.8 mg Thiamine HCl (Thiamine Hcl 100 Mg Tablet) 100 mg PO DAILY [facility] Last Admin: 05/29/24 09:08 Dose: 100 mg Trazodone HCl (Trazodone Hcl 100 Mg Tablet) 100 mg PO BEDTIME [facility] Last Admin: 05/29/24 20:11 Dose: 100 mg Valacyclovir HCl (Valacyclovir Hcl 500 Mg Tablet) 500 mg PO BID [facility] Last Admin: 05/29/24 20:11 Dose: 500 mg Allergies Allergies Allergy/AdvReac Type Severity Reaction Status Date / Time No Known Allergies Allergy Verified 05/18/24 22:54 Assessment & Plan Assessment & Plan (1) Bipolar disorder: Status: Acute Code(s): F31.9 - Bipolar disorder, unspecified (2) PTSD (post-traumatic stress disorder): Status: Acute Code(s): F43.10 - Post-traumatic stress disorder, unspecified (3) Antisocial personality disorder: Status: Acute Code(s): F60.2 - Antisocial personality disorder Plan PTSD, Bipolar Disorder, Antisocial Personality Disorder. Plan: Admit, CV 15 minute checks Continue current regime-Observe for the need to make changes in regime Collateral contacts Diagnostics as needed Encourage full milieu Discharge planning. 05/20: change prns to haldol and thorazine as per patient request 05/21/2024: No changes 05/22: team is assessing residential options for pt in discharge planning continue current regime. Pt reporting no current adverse effects. 05/24: Continue tx 05/26: Abilify 5 mg a.m. (Trial for improved mgt of sensory overload sx). 05/27 CTP 05/28 CTP seems improved- 05/30 Continue plan of care Reason for continued inpatient stay Substantial Risk for: rapid decompensation Time Spent With Patient Time: Total time managing care of this patient today ____ minutes.
[2024-05-30] MEDS: Folic Acid 1 MG TABLET PO (09:04)
[2024-05-30] MEDS: Thiamine HCL 100 MG TABLET PO (09:04)
[2024-05-30] MEDS: ARIPiprazole 5 MG TABLET PO (09:04)
[2024-05-30] MEDS: FLUoxetine HCl 20 MG CAPSULE 40 MG PO (09:04)
[2024-05-30] MEDS: Aspirin 81 MG TAB.CHEW PO ×2 (09:05→20:44)
[2024-05-30] MEDS: Baclofen 20 MG TABLET PO ×3 (09:05→20:44)
[2024-05-30] MEDS: valACYclovir HCL 500 MG TABLET PO ×2 (09:05→20:43)
[2024-05-30] MEDS: cloNIDine HCL 0.2 MG TABLET PO ×2 (09:05→20:43)
[2024-05-30] MEDS: Gabapentin 400 MG CAPSULE 800 MG PO ×3 (09:05→20:43)
[2024-05-30] MEDS: chlorproMAZINE HCl 25 MG TABLET 50 MG PO ×2 (09:06→20:43)
[2024-05-30] MEDS: Ibuprofen 800 MG TABLET PO (09:31)
[2024-05-30] MEDS: HaloperidoL 5 MG TABLET PO (09:32)
[2024-05-30 10:41] LABS: MANUAL DIFF FLAG NO
[2024-05-30 10:44] LABS: Basophils Percent Auto 0.6 % (0-2); Eosinophils Absolute Auto 0.2 X10*3/uL (0.0-0.4); Eosinophils Percent Auto 4.2 % (0-4); Hematocrit 42.4 % (42.0-52.0); Hemoglobin 13.8 g/dl (14.0-18.0); Imm Gran Abs Auto 0.01 X10*3/uL (0.00-0.03); Imm Gran Pct Auto 0.2 % (0.0-0.4); Lymphocytes Absolute Auto 2.1 X10*3/uL (1.2-4.9); Lymphocytes Percent Auto 40.5 % (20-40); Mean Corpuscular HGB Conc 32.5 g/dl (31.0-36.0); Mean Corpuscular Volume 89.1 fL (80.0-98.0); Mean Platelet Volume 10.5 fL (9.4-12.4); Monocytes Absolute Auto 0.6 X10*3/uL (0.1-1.2); Monocytes Percent Auto 11.4 % (2-11); Neutrophils Absolute Auto 2.3 x10*3/uL (2.0-8.3); Neutrophils Percent Auto 43.1 % (45-73); Platelet Count 208 X10*3/uL (160-400); Red Blood Count 4.76 X10*6/uL (4.60-5.80); Red Cell Distribution Width 14.9 % (11.0-16.0); White Blood Count 5.3 X10*3/uL (4.8-10.8)
[2024-05-30 10:58] LABS: Estimated Average Glucose 123 mg/dL; Hemoglobin A1c % 5.9 % (<6.0)
[2024-05-30 11:10] LABS: Alanine Aminotransferase 38 U/L (0-40); Albumin Level 3.9 g/dL (3.5-5.0); Alkaline Phosphatase 79 U/L (39-117); Anion Gap 12 (12-20); Aspartate Amino Transferase 23 U/L (5-37); Bilirubin Total 0.3 mg/dL (0.0-1.0); Blood Urea Nitrogen 20 mg/dL (9-16); Calcium 9.9 mg/dL (8.4-10.2); Carbon Dioxide 25 mmol/L (22-29); Chloride 108 mmol/L (96-108); Cholesterol 186 mg/dL (<200); Creatinine Clr Calc Pharmacy 68.8; Estimated Glomerular Filt Rate > 60; Glucose Random 107 mg/dL (60-115); HDL Cholesterol 47 mg/dL (>40); LDL Cholesterol Calculated 117 mg/dL (<100); Sodium 141 mmol/L (135-145); Total Protein 6.9 g/dL (6.5-8.0); Triglycerides 114 mg/dL (<150)
[2024-05-30 11:33] LABS: Folate 16.1 ng/mL (> or = 4.0); Vitamin B12 388 pg/mL (200-900)
[2024-05-30 20:00] VITALS: BP 137/72; PULSE 89; TEMP 36.5; O2SAT 99
[2024-05-30] MEDS: Tamsulosin HCL 0.4 MG CAPSULE 0.8 MG PO (20:42)
[2024-05-30 20:43] VITALS: BP 174/74
[2024-05-30] MEDS: traZODone HCL 100 MG TABLET PO (20:43)
[2024-05-30] MEDS: Mirtazapine 15 MG TABLET PO (20:44)
[2024-05-31] MEDS: Omeprazole 40 MG CAPSULE.DR PO (05:37)
[2024-05-31] MEDS: Sucralfate 1 GM TABLET PO ×2 (05:37→20:08)
--- NOTE | 2024-05-31 05:41 | PC.NURSE ---
Patient approached this report writer to talk . Piter said he is experiencing a lot of abdominal pain and also feels fluid coming up into my mouth that tastes like blood. I know they think it is just GERD, but I think it is more than that. I'm hurting so much I am feeling suicidal again, just like when I first got here. Patient said he has had two family members from some type of stomach or intestinal cancer and he believes he needs to be scoped to find out what is really wrong with me . Patient also said I feel boris dizzy and lightheaded. Patient was given his a.m. Prilosec and his Sucralfate early. He said he is also passing a lot of gas (flatus).
[2024-05-31] MEDS: chlorproMAZINE HCl 25 MG TABLET 50 MG PO ×2 (08:12→20:03)
[2024-05-31] MEDS: HaloperidoL 5 MG TABLET PO (08:12)
--- NOTE | 2024-05-31 08:33 | PC.NURSE ---
pt approached TW to report 10/10 stomach pain and nothing helps. Its not constipation and it's not acid reflux and its making me suicidal Pt reports pain has been ongoing since 2004. Pt is requesting they put the camera down my throat. This is a hospital and they should be able to do it Pt refused PRN medication at this time and requested Haldol and Thorazine for my anxiety. Its through the roof . Pt is pleasant, calm and cooperative during this interaction. No obvious signs of distress, pain, or anxiety noted. Provider made aware of patient concerns. Awaiting potential new orders. Will continue to monitor.
[2024-05-31 08:44] VITALS: BP 142/82; PULSE 79; RESP 16; TEMP 36.6; O2SAT 95
[2024-05-31 11:34] VITALS: BP 124/67
[2024-05-31] MEDS: Folic Acid 1 MG TABLET PO (11:34)
[2024-05-31] MEDS: FLUoxetine HCl 20 MG CAPSULE 40 MG PO (11:34)
[2024-05-31] MEDS: valACYclovir HCL 500 MG TABLET PO ×2 (11:34→20:03)
[2024-05-31] MEDS: cloNIDine HCL 0.2 MG TABLET PO ×2 (11:34→20:07)
[2024-05-31] MEDS: Baclofen 20 MG TABLET PO ×2 (11:34→20:04)
[2024-05-31] MEDS: Aspirin 81 MG TAB.CHEW PO ×2 (11:34→20:09)
[2024-05-31] MEDS: ARIPiprazole 5 MG TABLET PO (11:34)
[2024-05-31] MEDS: Thiamine HCL 100 MG TABLET PO (11:35)
[2024-05-31] MEDS: Gabapentin 400 MG CAPSULE 800 MG PO ×2 (11:35→20:02)
--- NOTE | 2024-05-31 17:08 | P.PNPSI_ITS ---
Subjective Subjective Date of Service: 05/31/24 Reason For Visit: F60.2, F14.20, F12.9 Subjective Notes: Conditional Voluntary Healthcare Proxy: No Guardianship: No Medical Problems Affecting Mental Status: No Interim History: Pt reports acceptance to [facility] for 06/02. States he will not be able to make appointments, so he will wait and make ortho/GI appts when the program is completed. Discussed hesitancy to leave, feeling comfortable on the unit and wanting to remain fpc. He however, realized he needs to move forward with his plan of care. Visable in milieu, relaxed with peers and interactive, attentive to some groups. Medication Compliance: Yes Side effects from medications: No Attending Groups: Intermittent Review of Systems Acute medical concerns: No Medical Review of Systems: unchanged Review of Systems Review of Systems Yes all other systems are reviewed and are negative Mental Status Exam Mental Status Exam Patient Appearance: Well Grooomed and Appropriate Patient Orientation: Person, Place, Time and Situation Level of Consciousness: Awake and Alert Patient Behavior: Appropriate and Cooperative Mood Description: Calm Affect Description: Blunted Patient Cognition Impaired: No Ability to Follow Directions: Good Speech Pattern: Clear Hallucinations: None Thought Process: Intact and Goal Oriented Thought Content: positive for Intact Judgement: Good Diagnostics Vital Signs (24Hr): Vital Signs - 24 hr 05/30/24 20:00 05/30/24 20:43 05/31/24 08:44 Temperature 97.7 F 97.8 F Pulse Rate 89 79 Respiratory Rate 16 Blood Pressure 137/72 174/74 H 142/82 H Pulse Oximetry 99 95 Oxygen Delivery Method Room Air Room Air 05/31/24 11:34 Temperature Pulse Rate Respiratory Rate Blood Pressure 124/67 Pulse Oximetry Oxygen Delivery Method BMI result Body Mass Index 28.4 Labs 05/30/24 10:18 05/30/24 10:18 Labs: Laboratory Results - last 48 hr 05/30/24 10:18 WBC 5.3 RBC 4.76 Hgb 13.8 L Hct 42.4 MCV 89.1 MCH 29.0 MCHC 32.5 RDW 14.9 Plt Count 208 MPV 10.5 Immature Gran % (Auto) 0.2 Neut % (Auto) 43.1 L Lymph % (Auto) 40.5 H [place] % (Auto) 11.4 H Eos % (Auto) 4.2 H Baso % (Auto) 0.6 Lymph # (Auto) 2.1 [place] # (Auto) 0.6 Eos # (Auto) 0.2 Baso # (Auto) 0.0 Abs Immat Gran (auto) 0.01 Absolute Neuts (auto) 2.3 Absolute Nucleated RBC 0.000 Nucleated RBC % (auto) 0.0 Sodium 141 Potassium 4.0 Chloride 108 Carbon Dioxide 25 Anion Gap 12 BUN 20 H Creatinine 1.20 Estim Creat Clear Calc 68.8 Estimated GFR > 60 Random Glucose 107 Estimat Average Glucose 123 Hemoglobin A1c % 5.9 Calcium 9.9 Total Bilirubin 0.3 AST 23 ALT 38 Alkaline Phosphatase 79 Total Protein 6.9 Albumin 3.9 Triglycerides 114 Cholesterol 186 LDL Cholesterol, Calc 117 H HDL Cholesterol 47 Vitamin B12 388 Folate 16.1 TSH 2.40 Medications Medications Current Medications Acetaminophen (Acetaminophen 325 Mg Tablet) 650 mg PO Q6H PRN PRN Reason: Headache/Pain Mild Scale (1-3) Al Hydroxide/Mg Hydroxide (Magnesium Hydrox/Alum Hydrox 30 Ml Oral.Susp) 30 ml PO Q6H PRN PRN Reason: Heartburn/Nausea Aripiprazole (Aripiprazole 5 Mg Tablet) 5 mg PO DAILY [facility] Last Admin: 05/31/24 11:34 Dose: 5 mg Aspirin (Aspirin 81 Mg Tab.Chew) 81 mg PO BID [facility] Last Admin: 05/31/24 11:34 Dose: 81 mg Baclofen (Baclofen 20 Mg Tablet) 20 mg PO TID [facility] Last Admin: 05/31/24 11:34 Dose: 20 mg Chlorpromazine HCl (Chlorpromazine Hcl 25 Mg Tablet) 50 mg PO BID [facility] Last Admin: 05/31/24 08:12 Dose: 50 mg Chlorpromazine HCl (Chlorpromazine Hcl 25 Mg Tablet) 50 mg PO TID PRN PRN Reason: agitation Last Admin: 05/21/24 10:53 Dose: 50 mg Clonidine HCl (Clonidine Hcl 0.2 Mg Tablet) 0.2 mg PO BID [facility]; Protocol Last Admin: 05/31/24 11:34 Dose: 0.2 mg Fluoxetine HCl (Fluoxetine Hcl 20 Mg Capsule) 40 mg PO DAILY [facility] Last Admin: 05/31/24 11:34 Dose: 40 mg Folic Acid (Folic Acid 1 Mg Tablet) 1 mg PO DAILY [facility] Last Admin: 05/31/24 11:34 Dose: 1 mg Gabapentin (Gabapentin 400 Mg Capsule) 800 mg PO TID [facility] Last Admin: 05/31/24 11:35 Dose: 800 mg Haloperidol (Haloperidol 5 Mg Tablet) 5 mg PO TID PRN PRN Reason: Anxiety Last Admin: 05/31/24 08:12 Dose: 5 mg Ibuprofen (Ibuprofen 800 Mg Tablet) 800 mg PO Q8H PRN PRN Reason: Pain, Severe (Pain Scale 7-10) Last Admin: 05/30/24 09:31 Dose: 800 mg Magnesium Hydroxide (Milk Of Magnesia 30 Ml Oral.Susp) 30 ml PO DAILY PRN PRN Reason: Constipation Last Admin: 05/28/24 13:34 Dose: 30 ml Mirtazapine (Mirtazapine 15 Mg Tablet) 15 mg PO BEDTIME [facility] Last Admin: 05/30/24 20:44 Dose: 15 mg Nicotine Polacrilex (Nicotine Polacrilex 2 Mg Gum) 2 mg BUCCAL Q2H PRN PRN Reason: Nicotine Cravings Pat Own Med (Act Dry Mouth Moisturizing Gum 1 Piece Of Gum) 1 piece of gum PO Q2H PRN PRN Reason: Dry Mouth Last Admin: 05/31/24 05:39 Dose: 1 piece of gum Omeprazole (Omeprazole 40 Mg Capsule.Dr) 40 mg PO DAILY@0630 [facility] Last Admin: 05/31/24 05:37 Dose: 40 mg Sucralfate (Sucralfate 1 Gm Tablet) 1 gm PO BIDAC [facility] Last Admin: 05/31/24 05:37 Dose: 1 gm Tamsulosin HCl (Tamsulosin Hcl 0.4 Mg Capsule) 0.8 mg PO BEDTIME [facility] Last Admin: 05/30/24 20:42 Dose: 0.8 mg Thiamine HCl (Thiamine Hcl 100 Mg Tablet) 100 mg PO DAILY [facility] Last Admin: 05/31/24 11:35 Dose: 100 mg Trazodone HCl (Trazodone Hcl 100 Mg Tablet) 100 mg PO BEDTIME [facility] Last Admin: 05/30/24 20:43 Dose: 100 mg Valacyclovir HCl (Valacyclovir Hcl 500 Mg Tablet) 500 mg PO BID [facility] Last Admin: 05/31/24 11:34 Dose: 500 mg Allergies Allergies Allergy/AdvReac Type Severity Reaction Status Date / Time No Known Allergies Allergy Verified 05/18/24 22:54 Assessment & Plan Assessment & Plan (1) Bipolar disorder: Status: Acute Code(s): F31.9 - Bipolar disorder, unspecified (2) PTSD (post-traumatic stress disorder): Status: Acute Code(s): F43.10 - Post-traumatic stress disorder, unspecified (3) Antisocial personality disorder: Status: Acute Code(s): F60.2 - Antisocial personality disorder Plan PTSD, Bipolar Disorder, Antisocial Personality Disorder. Plan: Admit, CV 15 minute checks Continue current regime-Observe for the need to make changes in regime Collateral contacts Diagnostics as needed Encourage full milieu Discharge planning. 05/20: change prns to haldol and thorazine as per patient request 05/21/2024: No changes 05/22: team is assessing residential options for pt in discharge planning continue current regime. Pt reporting no current adverse effects. 05/24: Continue tx 05/26: Abilify 5 mg a.m. (Trial for improved mgt of sensory overload sx). 05/27 CTP 05/28 CTP seems improved- 05/30 Continue plan of care 05/31 Continue tx DC 06/02 to [facility] Reason for continued inpatient stay Substantial Risk for: stable for discharge Time Spent With Patient Time: Total time managing care of this patient today ____ minutes.
[2024-05-31 20:00] VITALS: BP 121/69; PULSE 88; TEMP 36.6; O2SAT 94
[2024-05-31] MEDS: Tamsulosin HCL 0.4 MG CAPSULE 0.8 MG PO (20:08)
[2024-05-31] MEDS: Mirtazapine 15 MG TABLET PO (20:09)
[2024-05-31] MEDS: traZODone HCL 100 MG TABLET PO (20:10)
[2024-06-01] MEDS: Magnesium Hydrox/Alum Hydrox 30 ML ORAL.SUSP PO (05:19)
[2024-06-01] MEDS: Ibuprofen 800 MG TABLET PO (05:19)
[2024-06-01] MEDS: Sucralfate 1 GM TABLET PO (07:28)
[2024-06-01] MEDS: Omeprazole 40 MG CAPSULE.DR PO (07:29)
[2024-06-01 07:58] VITALS: BP 119/66; PULSE 88; RESP 20; TEMP 36.6; O2SAT 99
[2024-06-01] MEDS: ARIPiprazole 5 MG TABLET PO (08:03)
[2024-06-01] MEDS: Aspirin 81 MG TAB.CHEW PO (08:03)
[2024-06-01] MEDS: Thiamine HCL 100 MG TABLET PO (08:03)
[2024-06-01] MEDS: valACYclovir HCL 500 MG TABLET PO (08:03)
[2024-06-01] MEDS: Gabapentin 400 MG CAPSULE 800 MG PO (08:04)
[2024-06-01] MEDS: Baclofen 20 MG TABLET PO (08:04)
[2024-06-01] MEDS: chlorproMAZINE HCl 25 MG TABLET 50 MG PO (08:04)
[2024-06-01] MEDS: HaloperidoL 5 MG TABLET PO (08:04)
[2024-06-01] MEDS: cloNIDine HCL 0.2 MG TABLET PO (08:04)
[2024-06-01] MEDS: FLUoxetine HCl 20 MG CAPSULE 40 MG PO (08:05)
[2024-06-01] MEDS: Folic Acid 1 MG TABLET PO (08:05)
--- NOTE | 2024-06-01 12:11 | PM.PSYDC ---
DS: Providers Provider Date of Service: 06/01/24 Date of admission: 05/18/24 22:51 Date of discharge: 06/01/24 Primary care physician: Unknown Physician Admitting clinician: Merry Stark Attending physician on admission: Acosta Mares Consults: 05/18/24 23:03 Consult to Hospitalist Routine Comment: Consulting Provider: Hospitalist Reason For Exam: medical H&P Attending physician on discharge: Acosta Mares Discharging clinician: Merry Stark DS: Diagnosis Discharge Diagnosis (1) Bipolar disorder: Status: Acute (2) PTSD (post-traumatic stress disorder): Status: Acute (3) Antisocial personality disorder: Status: Acute DS: Medications Discharge Medications Home Medications: Previous Rx's ?Medication ?Instructions ?Recorded aripiprazole 5 mg tablet (Abilify) 5 mg PO DAILY #14 tabs 06/01/24 aspirin 81 mg chewable tablet 81 mg PO BID #28 tabs 06/01/24 baclofen 20 mg tablet 20 mg PO TID #42 tabs 06/01/24 chlorpromazine 50 mg tablet 50 mg PO BID #28 tabs 06/01/24 clonidine HCl 0.1 mg tablet 0.2 mg (2 x 0.1 mg) PO BID #28 tabs 06/01/24 fluoxetine 40 mg capsule 40 mg PO DAILY #14 caps 06/01/24 folic acid 1 mg tablet 1 mg PO DAILY #14 tabs 06/01/24 gabapentin 800 mg tablet 800 mg PO TID #21 tabs 06/01/24 mirtazapine 15 mg tablet 15 mg PO BEDTIME #14 tabs 06/01/24 nicotine (polacrilex) 2 mg gum 2 mg buccal Q2H PRN Nicotine 06/01/24 Cravings #100 ea omeprazole 40 mg capsule,delayed 40 mg PO DAILY #28 caps 06/01/24 release sucralfate 1 gram tablet 1 g PO BID #28 tabs 06/01/24 tamsulosin 0.4 mg capsule 0.4 mg PO DAILY #14 caps 06/01/24 thiamine mononitrate (vit B1) 100 100 mg PO DAILY #14 tabs 06/01/24 mg tablet trazodone 100 mg tablet 100 mg PO BEDTIME #14 tabs 06/01/24 valacyclovir 500 mg tablet 500 mg PO BID #28 tabs 06/01/24 Mental Status Exam Mental Status Exam Patient Appearance: Well Grooomed and Appropriate Patient Orientation: Person, Place, Time and Situation Level of Consciousness: Awake and Alert Patient Behavior: Appropriate and Cooperative Mood Description: Calm Affect Description: Blunted Patient Cognition Impaired: No Ability to Follow Directions: Good Speech Pattern: Clear Hallucinations: None Thought Process: Intact and Goal Oriented Thought Content: positive for Intact Judgement: Good Data Data Completed and Pending Completed studies during hospitalization [Text1]: 05/30/24 10:18 WBC 5.3 RBC 4.76 Hgb 13.8 L Hct 42.4 MCV 89.1 MCH 29.0 MCHC 32.5 RDW 14.9 Plt Count 208 MPV 10.5 Immature Gran % (Auto) 0.2 Neut % (Auto) 43.1 L Lymph % (Auto) 40.5 H [place] % (Auto) 11.4 H Eos % (Auto) 4.2 H Baso % (Auto) 0.6 Lymph # (Auto) 2.1 [place] # (Auto) 0.6 Eos # (Auto) 0.2 Baso # (Auto) 0.0 Abs Immat Gran (auto) 0.01 Absolute Neuts (auto) 2.3 Absolute Nucleated RBC 0.000 Nucleated RBC % (auto) 0.0 Sodium 141 Potassium 4.0 Chloride 108 Carbon Dioxide 25 Anion Gap 12 BUN 20 H Creatinine 1.20 Estim Creat Clear Calc 68.8 Estimated GFR > 60 Random Glucose 107 Estimat Average Glucose 123 Hemoglobin A1c % 5.9 Calcium 9.9 Total Bilirubin 0.3 AST 23 ALT 38 Alkaline Phosphatase 79 Total Protein 6.9 Albumin 3.9 Triglycerides 114 Cholesterol 186 LDL Cholesterol, Calc 117 H HDL Cholesterol 47 Vitamin B12 388 Folate 16.1 TSH 2.40 DS: Summary Hospital Course Hospital Course: Admission to adult psychiatry in transfer from [facility] for exacerbation of PTSD, Bipolar Disorder, Polysubstance Use Disorder, Antisocial Personality Disorder. Pt presented to [facility] ER in transfer from [facility] where he was living with five room-mates with relapse, SI, HI to drug dealers. Pt with hx of 30 years of incarceration, currently out for 12 years without re-integration assist he reports and unable to make life workable-homeless for these years post incarceration with a reported twenty two ER visits thus far in 2023, hx of bilateral THR with consistent R sided [place] [facility] [place] Pt discussed social anxiety and great difficulty with noise and large groups of people, given his experience while incarcerated, discussing how his PTSD has effected his ability to succeed in the community. Medications were evaluated and adjusted, pt participated in milieu, and team initiated a search for ongoing treatment with [facility] programs as he was not welcomed back to [place]. Pt made contact with [facility] post incarceration program who offered support for pt in community. Pt was accepted to [facility] for a 06/02/24 admission, declined the acceptance and chose to return to [place] where he will follow up with [facility] and [facility] where his providers are located. Status at Discharge Functional status at discharge: independent ambulation Overall status at discharge: patient is progressing back to baseline Time Spent with Patient Time attestation: Total time managing care of this patient today ____ minutes. Time spent: Less than 30 minutes Discharge Plan Discharge Anticipated Discharge Date/Time: 06/01/24 12:00 Patient Disposition: Xfer Other Discharge Diagnosis: Bipolar Disorder PTSD Polysubstance Use Disorder Referrals: [facility] [Other] - 1 Week (Referral to [facility] for substance use treatment ) [facility] [Other] - 1 Week (Referral to [facility] for substance use treatment ) [facility] ([facility]) [facility] [Other] - 1 Week (Referral to [facility] through [facility]) [facility] [Other] - 06/02/24 11:00 am (Patient referred and accepted to [facility] CSS program ) [facility] [Other] - 1 Week (Patient may self present or call to connect with services for psychiatry and therapy. Wednesday, Wednesday, Wednesday, , Wednesday from 9:00 AM to 5:00 PM for ALL age group(s)) [facility] ([facility]) [Other] - 1 Week (Patient may call to be connected with outpatient services Wednesday, Wednesday, Wednesday, , Wednesday from 8:00 AM to 8:00 PM for ALL age group(s) We serve ages 3+ Wednesday, Wednesday from 9:00 AM to 5:00 PM for ALL age group(s) We serve ages 3+) Discharge Medications: New nicotine (polacrilex) 2 mg Gum 2 mg buccal Q2H PRN (Reason: Nicotine Cravings) Qty: 100 0RF aspirin 81 mg Tablet,Chewable 81 mg PO BID Qty: 28 0RF aripiprazole [Abilify] 5 mg Tablet 5 mg PO DAILY Qty: 14 0RF thiamine mononitrate (vit B1) 100 mg Tablet 100 mg PO DAILY Qty: 14 0RF Continued fluoxetine 40 mg capsule 40 mg PO DAILY Qty: 14 0RF clonidine HCl 0.1 mg tablet 0.2 mg PO BID Qty: 28 1RF sucralfate 1 gram Tablet 1 g PO BID Qty: 28 0RF Rx Instructions: two times daily before meals valacyclovir 500 mg tablet 500 mg PO BID Qty: 28 0RF omeprazole 40 mg capsule,delayed release(DR/EC) 40 mg PO DAILY Qty: 28 0RF baclofen 20 mg tablet 20 mg PO TID Qty: 42 0RF tamsulosin 0.4 mg capsule 0.4 mg PO DAILY Qty: 14 0RF gabapentin 800 mg tablet 800 mg PO TID Qty: 21 1RF trazodone 100 mg Tablet 100 mg PO BEDTIME Qty: 14 0RF folic acid 1 mg Tablet 1 mg PO DAILY Qty: 14 0RF mirtazapine 15 mg tablet 15 mg PO BEDTIME Qty: 14 0RF chlorpromazine 50 mg tablet 50 mg PO BID Qty: 28 0RF Discontinued ibuprofen 800 mg tablet 800 mg PO Q8H PRN (Reason: Pain (Scale Score 7-10)) hydroxyzine pamoate 50 mg capsule 50 mg PO Q6H PRN (Reason: Anxiety) thiamine HCl (vitamin B1) 100 mg Tablet 100 mg PO DAILY aspirin 81 mg Tablet 81 mg PO BID Rx Instructions: administer with water, food or milk to decrease GI upset Discharge Orders: Discharge Order (Routine); Ordered 06/01/24 Ordered By: Merry Stark Diet: Advance to usual diet Activity on Discharge: As tolerated Stand Alone Forms: Patient Portal Discharge page Print Language: Nauruan Care Plan Goals: Abstinence Mood and Behavioral Stabilization Health Concerns: Abstinence Mood and Behavioral Stabilization Plan of Treatment: You are leaving today, refusing admission to [facility], who accepted you for admission on 06/02/24. You report you will return to [place], have talked with [facility], and will register with [facility] for care mgt services and assisted support, stating you will be referred to [facility]. You will continue with your primary care team with [facility] and their pharmacy, where your medications have been sent. Assessment: No SI, HI, AH, VH, sx of judith or psychosis. Pt declines transfer to [facility] for further treatment on 06/02/24. Discharge Date/Time: 06/01/24 12:00
== END 2024-06-01 12:00 | disposition other institution (70) | DRG 753 ==
PROVIDERS: Admitting Provider Psychiatry & Neurology Psychiatry; Visit Provider Clinical Nurse Specialist Psychiatric/Mental Health, Adult
DX: F31.9 Bipolar disorder, unspecified (principal); R45.851 Suicidal ideations; R45.850 Homicidal ideations; F19.90 Other psychoactive substance use, unspecified, uncomplicated; K21.9 Gastro-esophageal reflux disease without esophagitis; H54.62 Unqualified visual loss, left eye, normal vision right eye; F43.10 Post-traumatic stress disorder, unspecified; F60.2 Antisocial personality disorder; Z87.891 Personal history of nicotine dependence; Z91.51 Personal history of suicidal behavior; Z59.02 Unsheltered homelessness; Z79.899 Other long term (current) drug therapy
CPT/HCPCS: 36415; 80053; 80061; 82607; 82746; 83036; 84443; 85025

== ENCOUNTER → 2024-05-18 22:51 | Outpatient (BNV) | payer MEDICAID, SELFPAY | PROVIDERS: Admitting Provider Psychiatry & Neurology Psychiatry; Visit Provider Student in an Organized Health Care Education/Training Program | DX: Z00.8 Encounter for other general examination (principal) | CPT/HCPCS: 99429 ==

== ENCOUNTER → 2024-05-18 22:51 | Outpatient (BNV) | payer OTHER, SELFPAY | PROVIDERS: Admitting Provider Psychiatry & Neurology Psychiatry; Visit Provider Psychiatry & Neurology Psychiatry | DX: F60.2 Antisocial personality disorder (principal); F31.4 Bipolar disorder, current episode depressed, severe, without psychotic features; F43.11 Post-traumatic stress disorder, acute | CPT/HCPCS: 99231; 99232 ==